=== PATIENT | female | born 1955 | race Caucasian/White ===

== ENCOUNTER → 2017-01-22 | Outpatient (CLI) | payer BC ==
[2017-01-22 08:17] LABS: ALT 124 U/L (9-52); AST 95 U/L (14-36); Creatine Kinase 73 U/L (30-135)
== END ==
LOC: LABWHC1 07:20
PROVIDERS: ATTEND Internal Medicine Interventional Cardiology
DX: E78.00 Pure hypercholesterolemia, unspecified (principal); I10 Essential (primary) hypertension; E11.9 Type 2 diabetes mellitus without complications
CPT/HCPCS: 36415; 82550; 84450; 84460

== ENCOUNTER → 2017-06-11 | Outpatient (CLI) | payer BC ==
--- NOTE | 2017-06-12 08:05 | MM ---
Reason for exam: screening (asymptomatic). Last mammogram was performed 1 year and 1 month ago. History: Patient is postmenopausal. Physical Findings: A clinical breast exam by your physician is recommended on an annual basis and results should be correlated with mammographic findings. MG Screening Mammo w CAD Bilateral CC and MLO view(s) were taken. Prior study comparison: May 23, 2016, right breast MG work up mamm w CAD RT. May 15, 2016, bilateral MG screening mammo w CAD. The breast tissue is heterogeneously dense. This may lower the sensitivity of mammography. There is chronic nodularity bilaterally. There is no dominant lesion. No significant changes when compared with prior studies. ASSESSMENT: Benign, BI-RAD 2 RECOMMENDATION: Routine screening mammogram of both breasts in 1 year.
== END | disposition home or self-care (01) ==
LOC: RADMAMWWP 06:45
PROVIDERS: ATTEND Obstetrics & Gynecology
DX: Z12.31 Encounter for screening mammogram for malignant neoplasm of breast (principal)

== ENCOUNTER → 2017-12-24 | Outpatient (CLI) | payer BC ==
[2017-12-24 08:31] LABS: ALT 81 U/L (21-72); AST 66 U/L (17-59); Cholesterol 242 mg/dL (<200); Creatine Kinase 582 U/L (55-170); HDL Cholesterol 39 mg/dL (40-60); LDL Cholesterol,Calculated 154 mg/dL (0-99); Triglycerides 243 mg/dL (<150)
== END | disposition home or self-care (01) ==
LOC: LABWHC1 07:20
PROVIDERS: ATTEND Internal Medicine Interventional Cardiology
DX: I10 Essential (primary) hypertension (principal); E11.9 Type 2 diabetes mellitus without complications; E78.5 Hyperlipidemia, unspecified
CPT/HCPCS: 36415; 80061; 82550; 84450; 84460

== ENCOUNTER → 2018-07-31 | Outpatient (CLI) | payer BC ==
--- NOTE | 2018-08-01 10:34 | MM ---
Reason for exam: screening (asymptomatic). Last mammogram was performed 1 year and 2 months ago. History: Patient is postmenopausal. Took hormonal contraceptives for 1 year. Physical Findings: A clinical breast exam by your physician is recommended on an annual basis and results should be correlated with mammographic findings. MG Screening Mammo w CAD Bilateral CC and MLO view(s) were taken. Prior study comparison: June 11, 2017, bilateral MG screening mammo w CAD. May 23, 2016, right breast MG work up mamm w CAD RT. The breast tissue is heterogeneously dense. This may lower the sensitivity of mammography. Finding #1: There is a 7 mm equal density (isodense), oval mass in the outer quadrant of the right breast. Finding #2: There are typically benign calcifications in both breasts. ASSESSMENT: Incomplete: need additional imaging evaluation, BI-RAD 0 RECOMMENDATION: Special view mammogram of the right breast. If lesion persists on supplemental views, image directed ultrasound is recommended. [facility] will attempt to contact patient to return for supplemental views and ultrasound if indicated.
== END | disposition home or self-care (01) ==
LOC: RADMAMWWP 08:04
PROVIDERS: ATTEND Obstetrics & Gynecology
DX: Z12.31 Encounter for screening mammogram for malignant neoplasm of breast (principal)
CPT/HCPCS: 77067

== ENCOUNTER → 2018-08-05 | Outpatient (CLI) | payer BC ==
--- NOTE | 2018-08-05 15:04 | MM ---
Reason for exam: additional evaluation requested from abnormal screening. Last mammogram was performed less than 1 month ago. History: Patient is postmenopausal. Took hormonal contraceptives for 1 year. Physical Findings: Nurse did not find any significant physical abnormalities on exam. MG 3D Work Up W/Cad RT CCRL and spot compression CC view(s) were taken of the right breast. Prior study comparison: July 31, 2018, bilateral MG screening mammo w CAD. June 11, 2017, bilateral MG screening mammo w CAD. The breast tissue is heterogeneously dense. This may lower the sensitivity of mammography. Finding: There is a 5 mm circumscribed round mass in the outer quadrant, anterior position of the right breast persists on additional views. These results were verbally communicated with the patient and result sheet given to the patient on 08/05/18. ASSESSMENT: Incomplete: need additional imaging evaluation, BI-RAD 0 RECOMMENDATION: Ultrasound of the right breast.
--- NOTE | 2018-08-05 15:05 | USB ---
Reason for exam: additional evaluation requested from abnormal screening. History: Patient is postmenopausal. Took hormonal contraceptives for 1 year. US Breast Workup Limited RT Right limited breast ultrasound including focal area of concern, retroareolar and axilla demonstrates a 0.3 x 0.4 x 0.2cm oval, complex lesion at 9 o'clock. These results were verbally communicated with the patient and result sheet given to the patient on 08/05/18. ASSESSMENT: Probably benign, BI-RAD 3 RECOMMENDATION: Follow-up diagnostic mammogram and ultrasound of the right breast in 6 months.
== END ==
LOC: EDSEX 13:14 → RADMAMWWP 13:14
PROVIDERS: ATTEND Obstetrics & Gynecology
DX: R92.8 Other abnormal and inconclusive findings on diagnostic imaging of breast (principal)
CPT/HCPCS: 77061; 77065

== ENCOUNTER → 2019-07-28 | Outpatient (CLI) | payer BC ==
--- NOTE | 2019-07-28 13:50 | MM ---
Reason for exam: additional evaluation requested from prior study. Last mammogram was performed 1 year ago. History: Patient is postmenopausal. Took hormonal contraceptives for 1 year. Physical Findings: Nurse did not find any significant physical abnormalities on exam. MG 3D Diag Mammo W/Cad TOBI Bilateral CC and MLO view(s) were taken. Prior study comparison: August 05, 2018, right breast MG 3d work up w/cad RT. July 31, 2018, bilateral MG screening mammo w CAD. The breast tissue is heterogeneously dense. This may lower the sensitivity of mammography. There is no discrete abnormality. No significant new findings when compared with previous films. These results were verbally communicated with the patient and result sheet given to the patient on 07/28/19. ASSESSMENT: Negative, BI-RAD 1 RECOMMENDATION: Routine screening mammogram of both breasts in 1 year.
== END | disposition home or self-care (01) ==
LOC: RADMAMWWP 12:22
PROVIDERS: ATTEND Obstetrics & Gynecology
DX: R92.8 Other abnormal and inconclusive findings on diagnostic imaging of breast (principal)
CPT/HCPCS: 77062; 77066

== ENCOUNTER → 2021-03-06 | Outpatient (CLI) | payer MEDICARE, BC ==
--- NOTE | 2021-03-07 10:20 | MM ---
Reason for exam: screening (asymptomatic). Last mammogram was performed 1 year and 7 months ago. History: Patient is postmenopausal. Took hormonal contraceptives for 1 year. Physical Findings: A clinical breast exam by your physician is recommended on an annual basis and results should be correlated with mammographic findings. MG 3D Screening Mammo W/Cad Bilateral CC and MLO view(s) were taken. Prior study comparison: July 28, 2019, bilateral MG 3d diag mammo w/cad TOBI. August 05, 2018, right breast MG 3d work up w/cad RT. The breast tissue is heterogeneously dense. This may lower the sensitivity of mammography. Finding #1: There is a 9 mm equal density (isodense) mass in the upper outer quadrant of the left breast. Finding #2: There are typically benign calcifications in both breasts. ASSESSMENT: Incomplete: need additional imaging evaluation, BI-RAD 0 RECOMMENDATION: Special view mammogram of the left breast. If lesion persists on supplemental views, image directed ultrasound is recommended. [facility] will attempt to contact patient to return for supplemental views and ultrasound if indicated.
== END | disposition home or self-care (01) ==
LOC: RADMAMWWP 08:55
PROVIDERS: ATTEND Family Medicine
DX: Z12.31 Encounter for screening mammogram for malignant neoplasm of breast (principal); Z78.0 Asymptomatic menopausal state
CPT/HCPCS: 77063; 77067

== ENCOUNTER → 2021-03-08 | Outpatient (CLI) | payer MEDICARE, BC ==
--- NOTE | 2021-03-08 09:11 | MM ---
Reason for exam: additional evaluation requested from abnormal screening. Last mammogram was performed less than 1 month ago. History: Patient is postmenopausal. Took hormonal contraceptives for 1 year. Physical Findings: Nurse did not find any significant physical abnormalities on exam. MG 3D Work Up W/Cad LT Spot compression CC, spot compression MLO, and ML view(s) were taken of the left breast. Prior study comparison: March 06, 2021, bilateral MG 3d screening mammo w/cad. July 28, 2019, bilateral MG 3d diag mammo w/cad TOBI. The breast tissue is heterogeneously dense. This may lower the sensitivity of mammography. There is no discrete abnormality. No significant new findings when compared with previous films. These results were verbally communicated with the patient and result sheet given to the patient on 03/08/21. ASSESSMENT: Negative, BI-RAD 1 RECOMMENDATION: Return to routine screening mammogram schedule for both breasts.
== END | disposition home or self-care (01) ==
LOC: RADMAMWWP 08:02
PROVIDERS: ATTEND Family Medicine
DX: R92.2 Inconclusive mammogram (principal); Z78.0 Asymptomatic menopausal state
CPT/HCPCS: 77065; G0279; 77061

== ENCOUNTER → 2021-03-29 | Outpatient (CLI) | payer MEDICARE, BC ==
--- NOTE | 2021-03-29 09:29 | XR ---
EXAMINATION TYPE: XR Hip Complete RT DATE OF EXAM: 03/29/2021 CLINICAL HISTORY: Pain TECHNIQUE: AP and frogleg views of the right hip are obtained. COMPARISON: None. FINDINGS: There is no acute fracture/dislocation evident in the right hip. Mild narrowing of the sup erior compartment joint space with subchondral sclerosis of the acetabulum suggestive of osteoarthrit is. The overlying soft tissue appears unremarkable. Multiple calcified pelvic phleboliths in the righ t hemipelvis. IMPRESSION: There is no acute fracture or dislocation in the right hip. Mild osteoarthritis of the r ight hip.
--- NOTE | 2021-03-29 16:17 | XR ---
EXAMINATION TYPE: XR lumbar spine 2 or 3V DATE OF EXAM: 03/29/2021 CLINICAL HISTORY: Pain for 8 months radiates towards her right hip down the right leg. TECHNIQUE: Frontal, lateral, and oblique images of the lumbar spine are obtained. COMPARISON: None FINDINGS: 5 non rib bearing lumbar type vertebral bodies are seen. No loss of vertebral body height t o suggest acute compression fracture although there is bony demineralization. Minimal levocurvature. Diffuse bony demineralization limits evaluation for acute fractures. The sacroiliac joints are intact . There is maintenance of the normal lumbar lordosis. There is moderate intervertebral disc space ana rowing at L2-3. There is mild grade 1 retrolisthesis of L2 on L3. Mild straightening of the normal bart mbar lordosis likely due to positioning or muscle spasm. Multiple anterior osteophytes are seen. Face ts are in alignment with degenerative changes. IMPRESSION: 1. Mild grade 1 retrolisthesis of L2 on L3. There is moderate intervertebral disc space narrowing at L2-3. 2. Diffuse osteopenia limits evaluation for acute fracture. No loss of vertebral body height to sugge st acute compression fracture.
== END | disposition home or self-care (01) ==
LOC: RADXRMAIN 08:22
PROVIDERS: ATTEND Family Medicine
DX: M16.11 Unilateral primary osteoarthritis, right hip (principal); M43.16 Spondylolisthesis, lumbar region; M51.16 Intervertebral disc disorders with radiculopathy, lumbar region; M85.88 Other specified disorders of bone density and structure, other site
CPT/HCPCS: 72100; 73502

== ENCOUNTER 2021-05-02 07:49 | Day surgery (SDC) | payer MEDICARE, BC ==
[2021-04-27 15:50] VITALS: BMI 30.7
[2021-05-02 08:05] VITALS: TEMP 97.2
[2021-05-02 08:10] LABS: Glucose,Whole Blood 200 mg/dL (75-99)
[2021-05-02] MEDS ORDERED: LACTATED RINGERS 1,000 ML IV ONE (08:10)
[2021-05-02] MEDS ORDERED: PROPOFOL 10 MG/ML 20 ML VIAL IV ONE (08:30)
[2021-05-02] MEDS ORDERED: LIDOCAINE 1% INJ 10MG/ML (20 ML MDV) ONE (08:30)
--- NOTE | 2021-05-02 08:32 | P.GSHP ---
History of Present Illness H&P Date: 05/02/21 Chief Complaint: Iron deficiency anemia, GERD, screening Patient here today for upper and lower endoscopy. Patient complaining of fatigue. Was found to have low iron and low hemoglobin. Patient's white blood cell count and platelets also low. Last colonoscopy approximately 10 years ago. No previous upper endoscopy. Patient complains of reflux and occasional episodes of dysphagia. No rectal bleeding or melena. Past Medical History Past Medical History: Blood Disorder, Diabetes Mellitus, GERD/Reflux, Hyperlipidemia, Hypertension Additional Past Medical History / Comment(s): Seeing Dr Stephens for low RBC, WBC, PLT count. History of Any Multi-Drug Resistant Organisms: None Reported Past Surgical History: Hysterectomy Additional Past Surgical History / Comment(s): Colonoscopy, EGD Past Anesthesia/Blood Transfusion Reactions: Motion Sickness Smoking Status: Never smoker - Past Family History Mother Family Medical History: No Reported History Medications and Allergies Home Medications Medication Instructions Recorded Confirmed Type FLUoxetine HCL [PROzac] 20 mg PO HS 04/27/21 04/27/21 History L.acidoph,Paracasei, B.lactis 1 each PO DAILY 04/27/21 04/27/21 History [Probiotic] Loratadine [Claritin] 10 mg PO DAILY 04/27/21 04/27/21 History Losartan/Hydrochlorothiazide 1 tab PO DAILY 04/27/21 04/27/21 History [Losartan-Hctz 100-12.5 mg Tab] Metoprolol Tartrate 25 mg PO DAILY 04/27/21 05/02/21 History Omeprazole [PriLOSEC] 20 mg PO AC-BRKFST 04/27/21 04/27/21 History Rosuvastatin Calcium [Crestor] 5 mg PO DAILY 04/27/21 04/27/21 History metFORMIN HCL [metFORMIN HCL ER] 1,000 mg PO BID 04/27/21 04/27/21 History Allergies Allergy/AdvReac Type Severity Reaction Status Date / Time Penicillins Allergy Rash/Hives Verified 05/02/21 08:02 Surgical - Exam Vital Signs Temp Pulse Resp BP Pulse Ox 97.2 F L 76 17 129/72 97 05/02/21 08:05 05/02/21 08:05 05/02/21 08:05 05/02/21 08:05 05/02/21 08:05 Physical exam: General: Well-developed, well-nourished HEENT: Normocephalic, sclerae nonicteric Abdomen: Nontender, nondistended Extremities: No edema Neuro: Alert and oriented Results - Labs Abnormal Lab Results - Last 24 Hours (Table) 05/02/21 Range/Units 08:08 POC Glucose (mg/dL) 200 H (75-99) mg/dL Assessment and Plan (1) Iron deficiency anemia Narrative/Plan: Will proceed with upper and lower endoscopy Current Visit: Yes Status: Acute Code(s): D50.9 - IRON DEFICIENCY ANEMIA, UNSPECIFIED SNOMED Code(s): 50355426
--- NOTE | 2021-05-02 08:58 | P.PCN ---
Date of Procedure: 05/02/21 Procedure(s) Performed: PREOPERATIVE DIAGNOSIS: GERD, iron deficiency anemia, colon cancer screening POSTOPERATIVE DIAGNOSIS: Gastritis, small gastric polyps, ascending colon polyp PROCEDURE: 1. EGD with biopsy 2. Colonoscopy with snare polypectomy ANESTHESIA: MAC SURGEON: Vahid Garay M.D. SPECIMENS: Antrum, Gastric polyp, colon polyp ENDOSCOPIC PROCEDURE: The patient was on the endoscopy table in the left decubitus position. The Olympus gastroscope was inserted into the oropharynx and passed under direct visualization to the region of the third portion of the duodenum. From that point the scope was slowly withdrawn inspecting all surfaces carefully. There were no neoplastic inflammatory or polypoid lesions throughout the duodenum. The pylorus was widely patent. The stomach was carefully inspected. There was mild gastritis present. A biopsy of the antrum took place to rule out H. pylori. Patient also was noted have a few small gastric polyps. One of these was removed and biopsied. Retroflexion revealed a normal hiatus. The esophagus was then carefully examined. There were no neoplastic inflammatory or polypoid lesions throughout the visualized esophagus. The patient was kept on the endoscopy table in the left decubitus position. The Olympus colonoscope was inserted into the anus and passed under direct visualization to the base of the cecum. The appendiceal orifice was visualized. From that point the scope was slowly withdrawn inspecting all surfaces careful ly. There were no neoplastic inflammatory or polypoid lesions throughout the cecum. In the ascending colon there was a 1 cm sessile polyp that was removed using the snare with cautery technique. This was retrieved using the Pan met. The remainder of the ascending transverse descending sigmoid and rectum appeared normal. There is no visible diverticulosis. Digital rectal examination was normal. The patient was taken to the recovery room in stable condition per anesthesia guidelines. RECOMMENDATIONS: Await biopsy results. Continue anemia workup.
[2021-05-02 09:25] LABS: Glucose,Whole Blood 187 mg/dL (75-99)
[2021-05-02 09:27] VITALS: BP 108/71; PULSE 64; RESP 16
== END 2021-05-02 09:51 | disposition home or self-care (01) ==
LOC: ORWHC2ENDO 07:49
PROVIDERS: ATTEND Surgery
DX: Z12.11 Encounter for screening for malignant neoplasm of colon (principal); K21.9 Gastro-esophageal reflux disease without esophagitis; D50.9 Iron deficiency anemia, unspecified; D12.2 Benign neoplasm of ascending colon; K29.50 Unspecified chronic gastritis without bleeding; E11.9 Type 2 diabetes mellitus without complications; E78.5 Hyperlipidemia, unspecified; I10 Essential (primary) hypertension; Z79.899 Other long term (current) drug therapy; Z88.0 Allergy status to penicillin
CPT/HCPCS: 88305; 45385; 43239; J2001; J2704

== ENCOUNTER 2021-05-30 06:24 | Day surgery (SDC) | payer MEDICARE, BC ==
[2021-05-24 13:22] VITALS: BMI 30.7
[~2021-05-30 06:24] MED LIST: LACTATED RINGERS 1,000 ML IV SCH; LIDOCAINE 1% (10MG/ML) FOR IV START INTRADERMA PRN
[2021-05-30 06:59] VITALS: RESP 16; TEMP 97
[2021-05-30 07:07] LABS: Glucose,Whole Blood 156 mg/dL (75-99)
[2021-05-30] MEDS ORDERED: PROPOFOL 10 MG/ML 20 ML VIAL IV ONE (07:18)
[2021-05-30] MEDS ORDERED: LIDOCAINE 2% INJ 20 MG/ML SQ ONE ×2 (07:29→07:41)
[2021-05-30 08:09] VITALS: BP 100/66; PULSE 56
[2021-05-30 08:23] LABS: Anisocytosis Slight; Basophils % (A) 0 %; Eosinophils % (A) 1 %; HCT 34.6 % (34.0-46.0); HGB 11.8 gm/dL (11.4-16.0); Lymphocytes # (A) 0.8 k/uL (1.0-4.8); Lymphocytes % (A) 38 %; MCH 31.2 pg (25.0-35.0); MCHC 34.1 g/dL (31.0-37.0); MCV 91.6 fL (80.0-100.0); Mean Platelet Volume 7.2; Monocytes # (A) 0.1 k/uL (0-1.0); Monocytes % (A) 5 %; Neutrophils # (A) 1.2 k/uL (1.3-7.7); Neutrophils % (A) 54 %; RBC 3.78 m/uL (3.80-5.40); RDW 16.8 % (11.5-15.5); Reticulocyte % 2.8 % (0.5-2.0); WBC 2.2 k/uL (3.8-10.6)
[2021-05-30 08:35] LABS: Platelet Count 80 k/uL (150-450)
--- NOTE | 2021-05-30 09:57 | PCN ---
PROCEDURE NOTE DATE OF SERVICE: May 30, 2021. PROCEDURE PERFORMED: Bone pain and biopsy. INDICATION: Pancytopenia. DESCRIPTION OF PROCEDURE: After obtaining consent from the patient, the procedure was performed in the endoscopy suite under general anesthesia performed by the anesthesia team. The patient was put in the left lateral decubitus position. The right posterior iliac crest was localized. Skin was prepped with a ChloraPrep. All sterile procedures were followed. of 2% Xylocaine was used for local anesthetic. Monoject needle was inserted. About 10 mL aspirate and 1 cm core biopsy was obtained without any difficulties. Pressure applied afterwards. There was negligible blood loss. Patient tolerated procedure very well without any immediate complications. MMODL / IJN: [id number] /
== END 2021-05-30 08:34 | disposition home or self-care (01) ==
LOC: OR 06:24
PROVIDERS: ATTEND Internal Medicine Hematology & Oncology
DX: D61.818 Other pancytopenia (principal); I10 Essential (primary) hypertension; E78.5 Hyperlipidemia, unspecified; E11.9 Type 2 diabetes mellitus without complications; F32.9 Major depressive disorder, single episode, unspecified; K21.9 Gastro-esophageal reflux disease without esophagitis
CPT/HCPCS: 38222; 85025; 85045; J2001; J2704

== ENCOUNTER → 2021-06-12 | Outpatient (CLI) | payer MEDICARE, BC ==
--- NOTE | 2021-06-15 07:50 | CT ---
EXAMINATION TYPE: CT ChestAbdPelvis w con DATE OF EXAM: 06/12/2021 COMPARISON: 08/22/2012 HISTORY: Loose bowels and pancytopenia CT DLP: 1195.1 mGycm CONTRAST: CT scan of the chest, abdomen and pelvis is performed with Oral Contrast and with IV Contrast, patien t injected with 100 mL of Isovue 300. CT Chest: LUNGS: The lungs are clear and free of infiltrate or atelectasis. No pulmonary nodule or mass is det ected. No pleural effusion or CT evidence of interstitial lung disease. MEDIASTINUM: Thoracic aorta is of normal caliber. The heart is not enlarged. No evidence for media stinal mass or adenopathy. HILAR STRUCTURES: No evidence for mass. No hilar adenopathy is appreciated. OTHER: No significant abnormality. CONTRAST CT ABDOMEN AND PELVIS FINDINGS: LIVER/GB: No calcified gallstones. No space occupying hepatic lesion. Biliary tree is of normal ca liber. PANCREAS: No inflammation. No distinct mass. SPLEEN: Splenomegaly measures 19.1 cm craniocaudal dimension. No lesion seen. ADRENALS: No nodule. No thickening. KIDNEYS/BLADDER: No hydronephrosis. No nephrolithiasis. No disctinct renal mass. BOWEL: Normal appendix. Normal bowel caliber. No inflammation. GENITAL ORGANS: Hysterectomy changes. LYMPH NODES: No greater than 1cm abdominal or pelvic lymph nodes are appreciated. AORTA: No significant abnormality. OSSEOUS STRUCTURES: No significant abnormality is seen. OTHER: No significant additional abnormality is seen. IMPRESSION: 1. Splenomegaly.
== END | disposition home or self-care (01) ==
LOC: RADCTMAIN 10:40
PROVIDERS: ATTEND Internal Medicine Hematology & Oncology
DX: D61.818 Other pancytopenia (principal)
CPT/HCPCS: 82565; 84520; 71260; 74177; 36415; Q9967

== ENCOUNTER → 2021-07-28 | Outpatient (CLI) | payer MEDICARE, BC ==
--- NOTE | 2021-07-30 08:07 | PE ---
EXAMINATION TYPE: PET CT fusion skull to thigh DATE OF EXAM: 07/28/2021 COMPARISON: Whole-body CT June 12, 2021 HISTORY: Lymphadenopathy and splenomegaly. TECHNIQUE: Following the intravenous administration of 13.88 mCi of F-18 FDG, whole body images are performed from the skull base to the midthigh. Images are reviewed on the computer in the coronal, a xial, and sagittal planes. Reconstructed rotating images are created on independent workstation and reviewed on the computer. A localization and attenuation correction CT is performed in conjunction with the PET scan. Blood glucose level equals 128 SCAN: Initial Scan FINDINGS: SKULL BASE AND NECK: No abnormal hypermetabolic uptake or suspicious enlarged adenopathy. CHEST, MEDIASTINUM, AND HILAR REGION: No abnormal hypermetabolic uptake or suspicious enlarged adenop athy. ABDOMEN AND PELVIS: Hepatosplenomegaly redemonstrated without abnormal focal or diffuse hypermetaboli c uptake. Fairly moderate nonspecific diffuse bowel uptake. Normal excretion. Persistent some increased irregular linear and slightly nodular soft tissue density near the celiac a rtery and SMA for reference axial image 134 without abnormal hypermetabolic uptake. No greater than 1 cm hypermetabolic adenopathy. OSSEOUS STRUCTURES: No areas of abnormal hypermetabolic uptake OTHER CT: Likely posterior subcentimeter right thyroid nodule axial image 58. This correlates with 20 15 ultrasound. [id number]-wqbenzqy coronary artery calcification in the LAD. Uterus is surgically absent. Scattered bilateral pelvic phleboliths. Slight scoliotic curvature. Slight grade 1 retrolisthesis L2 on L3 and L3 on L4. IMPRESSION: Hepatosplenomegaly redemonstrated. Mild abnormal soft tissue in the upper to mid abdomen posteriorly again seen. No abnormal hypermetabolic uptake identified however. No enlarged hypermetabo lic lymph nodes.
== END | disposition home or self-care (01) ==
LOC: RADPETMAIN 15:23
PROVIDERS: ATTEND Internal Medicine Hematology & Oncology
DX: R16.2 Hepatomegaly with splenomegaly, not elsewhere classified (principal)
CPT/HCPCS: 78815; A9552

== ENCOUNTER → 2021-10-13 | Outpatient (CLI) | payer MEDICARE, BC ==
[~2021-10-13] MED LIST changes: -LACTATED RINGERS 1,000 ML IV SCH; -LIDOCAINE 1% (10MG/ML) FOR IV START INTRADERMA PRN; +SODIUM CHLORIDE 0.9% 500 ML 500 ML in EMPTY BAG 1 BAG IV PRN; +ZOLEDRONIC ACID 5 MG in SODIUM CHLORIDE 0.9% 100 ML IV NR
[2021-10-13 10:02] VITALS: BP 152/78; PULSE 71; RESP 16; TEMP 98.3
== END ==
LOC: PROCWHC3 09:20
PROVIDERS: ATTEND Internal Medicine
DX: M81.0 Age-related osteoporosis without current pathological fracture (principal); Z88.0 Allergy status to penicillin
CPT/HCPCS: 96365; J3489

== ENCOUNTER → 2022-04-27 | Outpatient (CLI) | payer MEDICARE, BC ==
--- NOTE | 2022-05-01 18:09 | MM ---
Reason for Exam: Screening (asymptomatic). Last mammogram was performed 1 year(s) and 2 month(s) ago. Patient History: Menarche at age 15. First Full-Term at age 21. Hysterectomy at age 50. Postmenopausal. Patient used Hormonal Contraceptives for 1 year. Risk Values: Ursula 5 year model risk: 1.4%. NCI Lifetime model risk: 4.9%. Prior Study Comparison: 07/28/2019 Bilateral Diagnostic Mammogram, [facility]. 03/06/2021 Bilateral Screening Mammogram, [facility]. 03/08/2021 Left Diagnostic Mammogram, [facility]. Tissue Density: The breast tissue is heterogeneously dense. This may lower the sensitivity of mammography. Findings: Analyzed By CAD. Unchanged focal asymmetry central left breast. Faint benign vascular calcifications right breast. No significant change from prior exams. Overall Assessment: Benign, BI-RAD 2 Management: Screening Mammogram of both breasts in 1 year. 1. Patient should continue monthly self breast exams. 2. A clinical breast exam by your physician is recommended on an annual. 3. This exam should not preclude additional follow-up of suspicious palpable abnormalities. Electronically signed and approved by: Sha Zavala M.D. Radiologis
== END | disposition home or self-care (01) ==
LOC: RADMAMWWP 07:49
PROVIDERS: ATTEND Family Medicine
DX: Z12.31 Encounter for screening mammogram for malignant neoplasm of breast (principal); Z78.0 Asymptomatic menopausal state
CPT/HCPCS: 77063; 77067

== ENCOUNTER 2022-08-24 10:57 | Day surgery (SDC) | payer MEDICARE, BC ==
[2022-08-22 11:17] VITALS: BMI 30.6
[~2022-08-24 10:57] MED LIST changes: +LACTATED RINGERS 1,000 ML IV SCH; +LIDOCAINE 1% (10MG/ML) FOR IV START INTRADERMA PRN; -SODIUM CHLORIDE 0.9% 500 ML 500 ML in EMPTY BAG 1 BAG IV PRN; -ZOLEDRONIC ACID 5 MG in SODIUM CHLORIDE 0.9% 100 ML IV NR
[2022-08-24 11:56] VITALS: RESP 16; TEMP 97.4
[2022-08-24] MEDS ORDERED: LIDOCAINE 2% INJ 20 MG/ML (2 ML VIAL) ONE (12:09)
[2022-08-24] MEDS ORDERED: PROPOFOL 10 MG/ML 20 ML VIAL IV ONE (12:09)
[2022-08-24 12:43] LABS: Basophils % (A) 0 %; Eosinophils % (A) 2 %; HCT 36.7 % (34.0-46.0); HGB 12.4 gm/dL (11.4-16.0); Lymphocytes # (A) 0.8 k/uL (1.0-4.8); Lymphocytes % (A) 35 %; MCH 31.8 pg (25.0-35.0); MCHC 33.7 g/dL (31.0-37.0); MCV 94.2 fL (80.0-100.0); Monocytes # (A) 0.1 k/uL (0-1.0); Monocytes % (A) 5 %; Neutrophils # (A) 1.3 k/uL (1.3-7.7); Neutrophils % (A) 58 %; Platelet Count 57 k/uL (150-450); RBC 3.89 m/uL (3.80-5.40); RDW 13.7 % (11.5-15.5); Reticulocyte % 2.2 % (0.5-2.0); WBC 2.2 k/uL (3.8-10.6)
[2022-08-24 13:11] VITALS: BP 117/74; PULSE 55
--- NOTE | 2022-08-24 21:43 | OP ---
OPERATIVE REPORT PROCEDURES PERFORMED: Bone marrow aspiration and biopsy. INDICATIONS FOR PROCEDURE: Pancytopenia. DESCRIPTION OF PROCEDURE: After obtaining consent from the patient, the procedure was performed in the endoscopy suite under general anesthesia performed by Anesthesia Team. The patient was put in the left lateral decubitus position. The right posterior superior iliac crest was localized. Skin was cleansed with ChloraPrep. All sterile procedures were followed. 2 mL of 2% Xylocaine was used for local anesthetic. Monoject needle was inserted. About 15 mL aspirate and 1 cm core biopsy were obtained without any difficulties. The patient tolerated the procedure very well without any immediate complications. MMODL / IJN: [id number] /
== END 2022-08-24 13:27 | disposition home or self-care (01) ==
LOC: OR 10:57
PROVIDERS: ATTEND Internal Medicine Hematology & Oncology
DX: D61.818 Other pancytopenia (principal); I10 Essential (primary) hypertension; E78.5 Hyperlipidemia, unspecified; E11.9 Type 2 diabetes mellitus without complications; E21.3 Hyperparathyroidism, unspecified; D46.9 Myelodysplastic syndrome, unspecified; K21.9 Gastro-esophageal reflux disease without esophagitis; Z79.899 Other long term (current) drug therapy; Z90.89 Acquired absence of other organs; Z90.49 Acquired absence of other specified parts of digestive tract; Z90.710 Acquired absence of both cervix and uterus; Z71.3 Dietary counseling and surveillance; Z88.0 Allergy status to penicillin
CPT/HCPCS: 85025; 85045; 38222; J2704; J2001

== ENCOUNTER → 2022-10-16 | Outpatient (CLI) | payer MEDICARE, BC ==
[~2022-10-16] MED LIST changes: -LACTATED RINGERS 1,000 ML IV SCH; -LIDOCAINE 1% (10MG/ML) FOR IV START INTRADERMA PRN; +SODIUM CHLORIDE 0.9% 500 ML 500 ML in EMPTY BAG 1 BAG IV PRN; +ZOLEDRONIC ACID 5 MG in SODIUM CHLORIDE 0.9% 100 ML IV NR
[2022-10-16 13:36] VITALS: BP 114/64; PULSE 59; RESP 16; TEMP 98.3
== END ==
LOC: PROCWHC3 13:25
PROVIDERS: ATTEND Internal Medicine
DX: M85.9 Disorder of bone density and structure, unspecified (principal); Z88.0 Allergy status to penicillin
CPT/HCPCS: 96365; J3489

== ENCOUNTER → 2023-05-01 | Outpatient (CLI) | payer MEDICARE, BC ==
--- NOTE | 2023-05-02 08:23 | MM ---
Reason for Exam: Screening (asymptomatic). Last screening mammogram was performed 12 month(s) ago. Patient History: Menarche at age 15. First Full-Term at age 21. Hysterectomy at age 50. Postmenopausal. Patient has history of breast feeding. Patient used Hormonal Contraceptives for 1 year. Daughter had breast cancer, left, age 46. Daughter tested for BRCA2 outcome was positive. Risk Values: Ursula 5 year model risk: 3.0%. NCI Lifetime model risk: 9.9%. Prior Study Comparison: 05/15/2016 Bilateral Screening Mammogram, [facility]. 05/23/2016 Right Diagnostic Mammogram, [facility]. 06/11/2017 Bilateral Screening Mammogram, [facility]. 07/31/2018 Bilateral Screening Mammogram, [facility]. 08/05/2018 Right Diagnostic Mammogram, [facility]. 07/28/2019 Bilateral Diagnostic Mammogram, [facility]. 03/06/2021 Bilateral Screening Mammogram, [facility]. 03/08/2021 Left Diagnostic Mammogram, [facility]. 04/27/2022 Bilateral MG 3D screening mammo w/cad, [facility]. Tissue Density: The breast tissue is heterogeneously dense. This may lower the sensitivity of mammography. Findings: Analyzed By CAD. There is no suspicious group of microcalcifications or new suspicious mass in either breast. Overall Assessment: Negative, BI-RAD 1 Management: Screening Mammogram of both breasts in [address] [facility] will attempt to contact patient to return for supplemental views and ultrasound if indicated. Patient should continue monthly self-breast exams. A clinical breast exam by your physician is recommended on an annual basis. This exam should not preclude additional follow-up of suspicious palpable abnormalities. Note on Ursula scores and lifetime risk: 1. A Ursula score greater than 3% is considered moderate risk. If this is the case, consider specialist referral to assess eligibility for a risk reducing agent. 2. If overall lifetime risk for the development of breast cancer is 20% or higher, the patient may qualify for future screening with alternating mammogram and breast MRI. Electronically signed and approved by: Mauro Harvey DO
== END | disposition home or self-care (01) ==
LOC: RADMAMWWP 07:49
PROVIDERS: ATTEND Family Medicine
DX: Z12.31 Encounter for screening mammogram for malignant neoplasm of breast (principal); Z78.0 Asymptomatic menopausal state; Z80.3 Family history of malignant neoplasm of breast
CPT/HCPCS: 77063; 77067

== ENCOUNTER → 2023-06-10 | Outpatient (CLI) | payer MEDICARE, BC ==
--- NOTE | 2023-06-10 09:13 | MR ---
EXAMINATION TYPE: MR lumbar spine wo con DATE OF EXAM: 06/10/2023 COMPARISON: Lumbar spine radiograph 06/03/2023 HISTORY: Back and Hip Pain that travels down the RT side x1 year TECHNIQUE: Multiplanar, multisequence images of the lumbar spine were acquired without IV contrast. FINDINGS: Lumbar segments are intact. No paraspinal masses are identified. Conus medullaris has a normal appe arance. Multilevel anterior osteophytosis with disc space narrowing. Type II Modic changes involving the inferior endplate of L2 and superior endplate of L3. Multilevel disc desiccation. L1-L2: Small right paracentral disc protrusion with superior migration of 8 mm. There is mild effacem ent of the intrathecal sac. Bilateral facet arthropathy. Mild left neural foraminal stenosis. The rig ht neural foramen is patent. L2-L3: Mild broad-based disc bulge with bilateral facet arthropathy. No stomach is central canal sten osis. No significant neural foraminal stenosis. L3-L4: Mild broad-based disc bulge with bilateral facet arthropathy without significant central canal or neural foraminal stenosis. L4-L5: Minimal broad-based disc bulge with bilateral facet arthropathy without significant central ca nal stenosis or neural foraminal stenosis. L5-S1: No herniation, protrusion or disc bulging. No canal stenosis is present. Left facet arthropa thy. Foramina are patent bilaterally. IMPRESSION: 1. Small L1-L2 disc herniation with superior migration. No significant central canal stenosis. Next l ine 2. Mild multilevel degenerative disc disease and facet arthropathy as described above.
== END | disposition home or self-care (01) ==
LOC: RADMRIMAIN 06:24
PROVIDERS: ATTEND Family Medicine
DX: M47.26 Other spondylosis with radiculopathy, lumbar region (principal); M51.16 Intervertebral disc disorders with radiculopathy, lumbar region; M99.73 Connective tissue and disc stenosis of intervertebral foramina of lumbar region
CPT/HCPCS: 72148

== ENCOUNTER → 2023-09-02 | Outpatient (CLI) | payer MEDICARE, BC ==
[2023-09-02 13:18] VITALS: BP 101/64; PULSE 67; RESP 15; TEMP 98.5
--- NOTE | 2023-09-02 13:50 | P.PAINPG ---
PQRS Measure Charge Sheet Comment: HISTORY OF PRESENT ILLNESS: A 68 yr old female w at side as a referral from Dr Francis presents today w severe and chronic LBP secondary to DDD, spondylosis and facet arthropathy without myelopathy for evaluation. Pt states pain level is provoked at 7 /10 in intensity, constant, localized in the mid to lower lumbar spine, predominantly axial, achy in character w shooting pain towards the RLE. Pain is provoked by weight bearing. Pain is alleviated by PT x 6 wks in Jun/ Jul 2023, heat, medications (Tyl), topical Icy-Hot, repositioning and rest. Oswestry axial pain score at 16. PMH: OA, DM II, GERD, Hyperlipidemia, HTN, Myelodysplastic Syndrome PSH: Colonoscopy/ EGD (2020), Hysterectomy SH: Negative x3 FH: Mo- No Reported History All: See list Meds: See list REVIEW OF ORGAN SYSTEMS: CONSTITUTIONAL: No fevers or chills. No recent weight loss. NEUROLOGICAL: + numbness and tingling along the distal extremities. No seizure disorders or headaches. MUSCULOSKELETAL: + pain PSYCHIATRIC: Denies current depression or suicidal thoughts. Physical Examinations : Constitutional : Cooperative , not in acute distress . Neurologic : Cranial nerve II to XII intact. No focal neurological deficits. Psychiatric : alert & oriented x 3. Matching mood & appropriate affect. Judgment & insight intact. Musculoskeletal : Cervical Spine Motor strength in the deltoid and biceps: Normal right side. Normal Left side Motor strength biceps and the wrist extensors: Normal right side . Normal left side Motor strength in the triceps muscle: Normal right side. Normal left side Deep tendon reflexes: Normal at the biceps. Normal at Brachioradialis. Normal at triceps Vertebral body tenderness to deep palpation over Cervical facet loading test: positive bilaterally Spurling test: positive bilaterally Neck distraction test: positive bilaterally Pete sign: positive bilaterally Lumbar spine Motor strength lower extremities ,thigh and legs 5/5 Right side , 5/5 Left side Deep tendon reflexes : Normal Knee Jerk. Normal Ankle Jerk Vertebral body tenderness over L3 Barraza Test positive Lumbar facet Loading Test: positive Right / positive Left Range of motion of the lumbar spine Flexion 30 degrees, extension 10 degrees Straight Leg Raise test: Left/ Right positive at degree Wang test: positive right / positive left. Severe tenderness over the Sacroiliac joint on the Right / Left sides Gaenslen test: positive bilaterally Seated flexion test: positive bilaterally. Sacral spine : Severe tenderness over the Sacroiliac joint: right side / left side Range of motion: Flexion of the lumbar spine <60 degrees Range of motion: Extension of the lumbar spine <20 degrees Gaenslen's Test positive Wang test: positive right side / left side Thigh Thrust Test Sacral Thrust Test Imaging: MRI noncontrast of the lumbar spine from 06/10/23 reviewed Assessment/ Plan : Lumbar DDD Recommendation of YUKO L2-L3 #1. May need a series of injections for optimal pain relief. Risks, benefits of procedure discussed and patient verbalized understanding. Admits to anti- coagulant use or medical history of diabetes. Protocol for discontinuation/ continuation of medications ana procedure discussed. Minimal anesthesia provided, if clinically indicated, consisting of Versed and Fentanyl. All questions answered. I have spent greater than 30 minutes on patient care today. Dr Pinto was available by phone for the evaluation of this patient. The time was used to review the medical records including relevant urine studies and Prescription history (MAPs), review of the available imaging, evaluation and examination of the patient, coordination of care with the medical staff and if applicable referring physicians, as well as creation of the medical record Home Medications: Ambulatory Orders FLUoxetine HCL [PROzac] 20 mg PO DAILY 04/27/21 Loratadine [Claritin] 10 mg PO DAILY PRN 04/27/21 Losartan/Hydrochlorothiazide [Losartan-Hctz 100-12.5 mg Tab] 1 tab PO DAILY 04/27/21 Metoprolol Tartrate 25 mg PO DAILY 04/27/21 Omeprazole [PriLOSEC] 20 mg PO AC-BRKFST 04/27/21 Rosuvastatin Calcium [Crestor] 5 mg PO DAILY 04/27/21 Pioglitazone [Actos] 30 mg PO DAILY 10/13/21 Cholecalciferol [Vitamin D3 (25 Mcg = 1000 Iu)] 50 mcg PO DAILY 08/22/22 Controlled Substance Measures - Controlled Substance Measures Is patient prescribed a controlled substance at discharge?: No
== END ==
LOC: PNWHC3 12:36
PROVIDERS: ATTEND Specialist
DX: M51.16 Intervertebral disc disorders with radiculopathy, lumbar region (principal); M48.061 Spinal stenosis, lumbar region without neurogenic claudication; M47.26 Other spondylosis with radiculopathy, lumbar region; M19.90 Unspecified osteoarthritis, unspecified site; E11.9 Type 2 diabetes mellitus without complications; E78.5 Hyperlipidemia, unspecified; I10 Essential (primary) hypertension; D46.9 Myelodysplastic syndrome, unspecified; K21.9 Gastro-esophageal reflux disease without esophagitis; Z79.899 Other long term (current) drug therapy; Z88.0 Allergy status to penicillin
CPT/HCPCS: 99211

== ENCOUNTER 2023-09-17 07:34 | Day surgery (SDC) | payer MEDICARE, BC ==
[~2023-09-17 07:34] MED LIST changes: +LACTATED RINGERS 1,000 ML IV SCH; -SODIUM CHLORIDE 0.9% 500 ML 500 ML in EMPTY BAG 1 BAG IV PRN; -ZOLEDRONIC ACID 5 MG in SODIUM CHLORIDE 0.9% 100 ML IV NR
[2023-09-17 11:34] LABS: Glucose,Whole Blood 89 mg/dL (70-110)
[2023-09-17 11:52] VITALS: TEMP 97.9
[2023-09-17] MEDS ORDERED: IOPAMIDOL M200 10 ML VIAL ONE (12:18)
[2023-09-17] MEDS ORDERED: methylPREDNISolone ACETATE 40 MG/ML 1 ML VIAL ONE (12:18)
--- NOTE | 2023-09-17 12:26 | P.PCN ---
Date of Procedure: 09/17/23 Procedure(s) Performed: PREOPERATIVE DIAGNOSIS: 1- Lumbar Degenerative Disc Diseases 2-Lumbar spondylosis with Facet arthropathy without myelopathy. 3-lumbar spinal stenosis POSTOPERATIVE DIAGNOSIS: 1-lumbar degenerative disc disease. 2-lumbar spondylosis with facet arthropathy without myelopathy. 3-lumbar spinal stenosis. PROCEDURE 1. Lumbar epidural steroid injection under fluoroscopic guidance at the L2-3 level. (Fluoroscopy imaging was available in radiology department) 2. Lumbar epidurogram. ANESTHESIA: Lidocaine 1% 3 and then only. EBL: Minimal PROCEDURE INDICATION: The patient with low back pain and radiculitis symptoms unresponsive to conservative treatment. Fluoroscopy was used to optimize visualization of the needle placement and to maximize safety. PROCEDURE DESCRIPTION / TECHNIQUE: The patient was seen and identified in the preoperative area. Risks, benefits, complications including but not limited to infections ,bleeding ,allergic reaction to the medications ,nerve damage and not complete pain releife , and alternatives were discussed with the patient. The patient agreed to proceed with the procedure and signed the consent, and vital signs were stable. Patient was taken to the OR and time out was completed. The patient was placed in the prone position on procedure table and a pillow was placed under the abdomen to reduce lumbar lordosis. The lumbosacral area was prepped and draped in the usual sterile fashion.ere closely monitored during the procedure. Vital signs was monitered during the entire procedure. Using anterior-posterior fluoroscopy, the L2-3 interlaminar space was identified and the skin over this site was marked and then infiltrated with 1% lidocaine subcutaneously. Subsequently, a 20-gauge Tuohy epidural needle was inserted and advanced toward the epidural space using the ``Loss of resistance technique and guided by AP and lateral fluoroscopy. The correct needle position in the epidural space was verified with the injection of 2 mL of the water soluble contrast dye Isovue 200 contrast and observing an excellent epidurogram with the epidural spread of the dye, after negative aspiration for blood and CSF and in the absence of paresthesias. Again after negative aspiration, a 6 ml mixture containing 40 mg of Depo-medrol ( Preservetive Free ), and 2 ml of preservative free Normal Saline, and 2 ml of preservative free lidocaine 1% solution was injected and a washout of epidurogram was seen. Needle was withdrawn intact, skin was cleansed, and bandages were applied. COMPLICATIONS: None DISPOSITION / PLANS: The patient was placed in a supine position and transferred to the recovery area in a stable condition for observation. There was no evidence of lower extremity motor or sensory deficit after the procedure. Patient was discharged from the recovery room after meeting discharge criteria. Home discharge instructions were given to the patient by the staff. The patient was reexamined prior to discharge. The patient will schedule a follow up in the clinic in 2-4 weeks. note= and had a history of pancytopenia and she received 20 units of platelets before the procedure(per hematology recommendation ).
[2023-09-17 12:50] VITALS: RESP 20
--- NOTE | 2023-09-17 13:16 | FL ---
Intraoperative/procedural fluoroscopic services were provided. Total fluoroscopy time is 2.5 seconds with a total of 1 submitted images to PACS. Please see the operative/procedural note for further deta ils. DAP: [id number] mGym2
[2023-09-17 13:18] VITALS: BP 138/79; PULSE 92
== END 2023-09-17 13:11 | disposition home or self-care (01) ==
LOC: ORPAIN 07:34
PROVIDERS: ATTEND Specialist
DX: M48.061 Spinal stenosis, lumbar region without neurogenic claudication (principal); M47.816 Spondylosis without myelopathy or radiculopathy, lumbar region; M51.36 Other intervertebral disc degeneration, lumbar region
CPT/HCPCS: 62323

== ENCOUNTER → 2023-09-17 | Outpatient (CLI) | payer MEDICARE, BC ==
[2023-09-17 11:13] LABS: HCT 30.9 % (34.0-46.0); HGB 10.1 gm/dL (11.4-16.0); MCHC 32.6 g/dL (31.0-37.0); MCV 95.2 fL (80.0-100.0); Mean Platelet Volume 7.7; RBC 3.25 m/uL (3.80-5.40); WBC 1.7 k/uL (3.8-10.6)
[2023-09-17 11:18] LABS: Platelet Count 49 k/uL (150-450)
[2023-09-17 11:52] VITALS: BP 117/76; PULSE 68; RESP 16; TEMP 98.3
== END ==
LOC: PROCWHC3 11:19
PROVIDERS: ATTEND Specialist
DX: D69.6 Thrombocytopenia, unspecified (principal)
CPT/HCPCS: 36000; 36415; 85027

== ENCOUNTER → 2023-10-16 | Outpatient (CLI) | payer MEDICARE, BC ==
[2023-10-16 08:55] VITALS: BP 115/67; PULSE 86; RESP 15; TEMP 98.2
--- NOTE | 2023-10-16 14:08 | P.PAINPG ---
PQRS Measure Charge Sheet Comment: HISTORY OF PRESENT ILLNESS: A 68 yr old female w at side presents today w severe and chronic LBP secondary to DDD, spondylosis and facet arthropathy without myelopathy for evaluation s/p YUKO L2-L3 #1. Pt states she experienced 80 % pain relief x 4 wks s/p procedure. Pt states pain level is provoked at 2 /10 in intensity, constant, localized in the mid to lower lumbar spine, predominantly axial, achy in character w occasional shooting pain towards the RLE. Pain is provoked by weight bearing. Pain is alleviated by PT x 6 wks in Jun/ Jul 2023, heat, medications, topical Icy-Hot, repositioning and rest. Oswestry axial pain score at 12. Interventional procedures include YUKO L2-L3 x1 Medications include Tyl REVIEW OF ORGAN SYSTEMS: CONSTITUTIONAL: No fevers or chills. No recent weight loss. NEUROLOGICAL: + numbness and tingling along the distal extremities. No seizure disorders or headaches. MUSCULOSKELETAL: + pain PSYCHIATRIC: Denies current depression or suicidal thoughts. Physical Examinations : Constitutional : Cooperative , not in acute distress . Neurologic : Cranial nerve II to XII intact. No focal neurological deficits. Psychiatric : alert & oriented x 3. Matching mood & appropriate affect. Judgment & insight intact. Musculoskeletal : Cervical Spine Motor strength in the deltoid and bicep s: Normal right side. Normal Left side Motor strength biceps and the wrist extensors: Normal right side . Normal left side Motor strength in the triceps muscle: Normal right side. Normal left side Deep tendon reflexes: Normal at the biceps. Normal at Brachioradialis. Normal at triceps Vertebral body tenderness to deep palpation over Cervical facet loading test: positive bilaterally Spurling test: positive bilaterally Neck distraction test: positive bilaterally Pete sign: positive bilaterally Lumbar spine Motor strength lower extremities ,thigh and legs 5/5 Right side , 5/5 Left side Deep tendon reflexes : Normal Knee Jerk. Normal Ankle Jerk Vertebral body tenderness over L3 Barraza Test positive Lumbar facet Loading Test: positive Right / positive Left Range of motion of the lumbar spine Flexion 30 degrees, extension 10 degrees Straight Leg Raise test: Left/ Right positive at degree Wang test: positive right / positive left. Severe tenderness over the Sacroiliac joint on the Right / Left sides Gaenslen test: positive bilaterally Seated flexion test: positive bilaterally. Sacral spine : Severe tenderness over the Sacroiliac joint: right side / left side Range of motion: Flexion of the lumbar spine <60 degrees Range of motion: Extension of the lumbar spine <20 degrees Gaenslen's Test positive Wang test: positive right side / left side Thigh Thrust Test Sacral Thrust Test Imaging: MRI noncontrast of the lumbar spine from 06/10/23 reviewed Assessment/ Plan : Lumbar DDD Recommendation of medication management. Flexeril 5mg PO QHS #30 w 1 RF. Use, side effects, adverse reactions in safe storage discussed. Pt acknowledged understanding. All questions answered. I have spent greater than 30 minutes on patient care today. Dr Pinto was available by phone for the evaluation of this patient. The time was used to review the medical records including relevant urine studies and Prescription history (MAPs), review of the available imaging, evaluation and examination of the patient, coordination of care with the medical staff and if applicable referring physicians, as well as creation of the medical record Home Medications: Ambulatory Orders FLUoxetine HCL [PROzac] 20 mg PO DAILY 04/27/21 Loratadine [Claritin] 10 mg PO DAILY PRN 04/27/21 Losartan/Hydrochlorothiazide [Losartan-Hctz 100-12.5 mg Tab] 1 tab PO DAILY 04/27/21 Metoprolol Tartrate 25 mg PO DAILY 04/27/21 Omeprazole [PriLOSEC] 20 mg PO HS 04/27/21 Rosuvastatin Calcium [Crestor] 5 mg PO HS 04/27/21 Pioglitazone [Actos] 30 mg PO DAILY 10/13/21 Cholecalciferol [Vitamin D3 (25 Mcg = 1000 Iu)] 50 mcg PO DAILY 08/22/22 Acetaminophen Tab [Tylenol] 325 mg PO DIRECTED PRN 09/12/23 [place]-3/Dha/Epa/Fish Oil [Fish Oil 1,000 mg Softgel] 1 each PO DAILY 09/12/23 Unk Probiotic 1 tab PO DAILY 09/12/23 Unk Soliqua 1 injection SQ DAILY 09/12/23 Zinc Gluconate [Zinc] 50 mg PO DAILY 09/12/23 Cyclobenzaprine [Flexeril] 5 mg PO HS PRN 30 Days #30 tab 10/16/23 Controlled Substance Measures - Controlled Substance Measures Is patient prescribed a controlled substance at discharge?: No
== END ==
LOC: PNWHC3 07:50
PROVIDERS: ATTEND Specialist
DX: M47.816 Spondylosis without myelopathy or radiculopathy, lumbar region (principal); M51.36 Other intervertebral disc degeneration, lumbar region; Z88.0 Allergy status to penicillin
CPT/HCPCS: 99211

== ENCOUNTER → 2024-05-11 | Outpatient (CLI) | payer MEDICARE, BC ==
[2024-05-11 15:35] LABS: Anion Gap 11.3 mmol/L (4.00-12.00); Carbon Dioxide 23.7 mmol/L (21.6-31.8); Potassium 3.8 mmol/L (3.5-5.5)
[2024-05-11 18:44] LABS: Basophils # (A) 0 X 10*3/uL (0.00-0.10); Basophils % (A) 0 %; Elliptocytes 2+; Eosinophils # (A) 0.05 X 10*3/uL (0.04-0.35); Eosinophils % (A) 1.8 %; HCT 33.9 % (37.2-46.3); HGB 10.7 g/dL (12.0-15.0); Immature Platelet Fraction 2.8 % (1.1-6.1); Lymphocytes # (A) 0.74 X 10*3/uL (0.90-5.00); Lymphocytes % (A) 26.7 %; MCHC 31.6 g/dL (32.0-37.0); Macrocytosis (M) 2+; Mean Platelet Volume 10.3 FL (9.5-12.2); Monocytes % (A) 7.2 %; NRBC Per 100 WBC 0 X 10*3/uL (0.00-0.01); Neutrophils # (A) 1.77 X 10*3/uL (1.80-7.70); Neutrophils % (A) 63.9 %; Platelet Count 74 X 10*3/uL (140-440); RBC 3.57 X 10*6/uL (4.10-5.20); RDW 14.3 % (11.5-14.5); WBC 2.77 X 10*3/uL (4.50-10.00)
== END | disposition home or self-care (01) ==
LOC: LABPAT 10:36
PROVIDERS: ATTEND Orthopaedic Surgery
DX: Z01.818 Encounter for other preprocedural examination (principal); M23.91 Unspecified internal derangement of right knee; R94.31 Abnormal electrocardiogram [ECG] [EKG]
CPT/HCPCS: 80051; 85025; 93005

== ENCOUNTER 2024-05-21 12:15 | Day surgery (SDC) | payer MEDICARE, BC ==
[2024-05-19 16:33] VITALS: BMI 31.5
--- NOTE | 2024-05-20 13:00 | HP ---
HISTORY AND PHYSICAL DATE OF SURGERY: 05/21/2024. HISTORY OF PRESENT ILLNESS: Emily Caputo is a 68-year-old patient, seen with progressive right knee pain. We discussed options. She elected to proceed with right knee arthroscopy. Consent was obtained. PAST MEDICAL HISTORY: Hypertension, hyperlipidemia, bbx-kgrtlcy-waijxbmml diabetes, gastroesophageal reflux disease. PAST SURGICAL HISTORY: None known. DAILY MEDICATIONS: 1. Losartan. 2. Metoprolol. 3. Omeprazole. 4. Rosuvastatin. 5. Lyrica. ALLERGIES: Penicillin. SOCIAL HISTORY: The patient denies tobacco use. PHYSICAL EVALUATION OF THE RIGHT KNEE: Range of motion is -2/3 to 90 degrees. Moderate effusion. Tenderness along the medial and lateral joint lines. Positive medial Juan Pablo's. Positive lateral Juan Pablo's. Ligaments stable. Hip rotation is without pain. Distal neurovascular exam is intact. IMAGING STUDIES: Radiographs of the right knee revealed mild to moderate lateral compartment osteoarthritis. IMPRESSION: 1. Internal derangement of right knee with medial and lateral meniscal tears. 2. Hdc-lwtswrb-rlluluvzf diabetes. 3. Hypertension. 4. Hyperlipidemia. PLAN: Right knee arthroscopy with partial medial/lateral meniscectomy and debridement. MMODL / IJN: [id number] /
[~2024-05-21 12:15] MED LIST changes: -LACTATED RINGERS 1,000 ML IV SCH; +LIDOCAINE 1% (10MG/ML) FOR IV START INTRADERMA PRN; +droPERidol 5 MG/2 ML VIAL IVP ONE
[2024-05-21] MEDS: IV FLUID CONTINUATION 1,000 ML IV ONE (13:05)
[2024-05-21 13:06] LABS: Glucose,Whole Blood 110 mg/dL (70-110)
[2024-05-21] MEDS: LACTATED RINGERS 1,000 ML IV SCH (13:10)
[2024-05-21] MEDS: DEXAMETHASONE SOD PHOSPHATE 4 MG/ML 1 ML VIAL IV ONE (13:10)
[2024-05-21] MEDS: ONDANSETRON 4 MG/2 ML VIAL IVP ONE (13:11)
[2024-05-21] MEDS ORDERED: PROPOFOL 10 MG/ML 20 ML VIAL IV ONE (13:13)
[2024-05-21] MEDS ORDERED: HYDROmorphone (PF) 1 MG/ML ONE (13:13)
[2024-05-21] MEDS ORDERED: LIDOCAINE 1% INJ 10MG/ML (20 ML MDV) ONE (13:13)
[2024-05-21] MEDS ORDERED: fentaNYL (PF) 50 MCG/ML 2 ML AMP ONE (13:13)
[2024-05-21] MEDS ORDERED: MIDAZOLAM 2 MG/2 ML VIAL ONE (13:13)
[2024-05-21] MEDS: BUPIVACAINE (PF) 0.25% 30 ML VIAL SQ ONE (13:35)
--- NOTE | 2024-05-21 14:07 | P.OP ---
Date of Procedure: 05/21/24 Preoperative Diagnosis: Internal derangement right knee Postoperative Diagnosis: 1. Tear medial and lateral meniscus right knee 2. Grade IV chondromalacia medial femoral condyle right knee 3. Grade IV chondromalacia lateral femoral condyle right knee 4. Reactive synovitis medial, lateral and suprapatellar compartments right knee Procedure(s) Performed: 1. Arthroscopic partial medial and lateral meniscectomy right knee 2. Arthroscopic microfracture medial femoral condyle right knee 3. Arthroscopic microfracture lateral femoral condyle right knee 4. Arthroscopic partial synovectomy medial, lateral and suprapatellar compartments right knee Anesthesia: TIKAA, local Surgeon: Lebron Bae Estimated Blood Loss (ml): 7 Pathology: none sent Condition: stable Disposition: PACU Indications for Procedure: 68-year-old patient seen with progressive right knee pain. After having treatment options discussed, she elected to proceed with arthroscopy. Operative Findings: See description of procedure Description of Procedure: Patient was taken to the operative suite. Patient underwent a general anesthetic by the department of anesthesia. Patient was given preoperative antibiotics. The right lower extremity was placed in a well-padded arthroscopic leg hernandez. The right leg was prepped and draped in the normal sterile orthopedic fashion. A lateral parapatellar and suprapatellar incision was made. Trochars were inserted. Arthroscopy was initiated. Suprapatellar pouch revealed diffuse thick reactive synovitis. The patellofemoral joint appeared to articulate congruently. There was grade I/II chondromalacia of the patella. The scope was guided into the medial gutter. No loose bodies or plica were identified. The scope was then guided into the medial compartment. A medial parapatellar incision was made. Trocar inserted followed by probe. There was a complex tear involving the posterior horn of the medial meniscus. There was an area of grade III/IV chondromalacia medial femoral condyle with large osteochondral flap tears. There was thick reactive synovitis anteriorly. I performed a partial medial meniscectomy getting down to stable meniscal tissue. I performed a chondroplasty of the medial femoral condyle getting down to stable osteochondral tissue. I performed a partial synovectomy decompressing the reactive synovitis. There was an area of exposed bone medial femoral condyle me asuring just over a centimeter. I introduced a microfracture awl and I performed a microfracture to the area of exposed bone penetrating the bone with resultant bleeding at the microfracture site. The residual meniscus was probed and was found to be stable. The residual osteochondral surface was stable. There was good decompression of the synovitis. Scope and probe were then guided into the intercondylar notch. Cruciates were identified, probed and found to be stable. The scope and probe were then guided into lateral compartment. There was a complex tear involving the mid body and posterior horns of the medial meniscus as well as as well as a radial tear along the anterior horn. There were grade III/IV chondromalacia changes of the lateral tibial plateau. There was an area of grade IV chondromalacia of the lateral femoral condyle with exposed bone measuring 1.5 cm in diameter. There was thick reactive synovitis anteriorly. I performed a partial lateral meniscectomy getting down to stable meniscal tissue. I performed a partial synovectomy decompressing the reactive synovitis. I introduced a microfracture awl and I performed a microfracture to the area of exposed bone lateral femoral condyle penetrating the bone with resultant bleeding at the microfracture site. The residual meniscus was probed and was found to be stable. The residual osteochondral surface appeared stable. There was good decompression of the synovitis. The scope was in guided back into the suprapatellar compartment. I introduced a motorized shaver into the suprapatellar compartment. I debrided some piecemeal fragments of meniscus that I encountered. I performed a partial synovectomy. The shaver was now removed. There was good decompression of the synovitis. I took 1 more look around the entire knee, no residual debris. Instruments were now removed from the joint. The joint was infiltrated with .25% Marcaine. Steri-Strips were applied to the portal sites. Sterile dressings were applied. The patient was placed into a MARA hose. No tourniquet was utilized. The patient was awakened, transferred to a bed and taken to recovery stable satisfactory condition.
[2024-05-21 14:08] VITALS: TEMP 98.7
[2024-05-21] MEDS: HYDROmorphone 0.5 MG/0.5 ML SYRINGE IVP PRN (14:10)
[2024-05-21 14:19] LABS: Glucose,Whole Blood 109 mg/dL (70-110)
[2024-05-21] MEDS: diphenhydrAMINE 50 MG/ML 1 ML VIAL IVP STA (14:43)
[2024-05-21 16:12] VITALS: RESP 18
[2024-05-21 17:06] VITALS: BP 107/58; PULSE 65
== END 2024-05-21 17:24 | disposition home or self-care (01) ==
LOC: OR 12:15
PROVIDERS: ATTEND Orthopaedic Surgery
DX: S83.241A Other tear of medial meniscus, current injury, right knee, initial encounter (principal); E11.9 Type 2 diabetes mellitus without complications; E78.5 Hyperlipidemia, unspecified; I10 Essential (primary) hypertension; K21.9 Gastro-esophageal reflux disease without esophagitis; D46.9 Myelodysplastic syndrome, unspecified; M54.9 Dorsalgia, unspecified; F41.9 Anxiety disorder, unspecified; X58.XXXA Exposure to other specified factors, initial encounter; Z79.84 Long term (current) use of oral hypoglycemic drugs; Z88.0 Allergy status to penicillin; Z79.02 Long term (current) use of antithrombotics/antiplatelets; Z79.899 Other long term (current) drug therapy
CPT/HCPCS: 29879; 29880; J2250; J1200; J1100; J0690; J2405; J2001; J3010; J1170 ×2; J2704; J0665

== ENCOUNTER → 2024-07-09 | Outpatient (CLI) | payer MEDICARE, BC ==
--- NOTE | 2024-07-10 08:39 | MM ---
Reason for Exam: Screening (asymptomatic). Last mammogram was performed 1 year(s) and 2 month(s) ago. Patient History: Menarche at age 15. First Full-Term at age 21. Hysterectomy at age 50. Postmenopausal. Patient has history of breast feeding. Patient used Hormonal Contraceptives for 1 year. Daughter had breast cancer, left, age 46. Daughter tested for BRCA2 outcome was positive. Risk Values: Ursula 5 year model risk: 3.0%. NCI Lifetime model risk: 9.1%. Prior Study Comparison: 03/08/2021 Left Diagnostic Mammogram, [facility]. 04/27/2022 Bilateral MG 3D screening mammo w/cad, [facility]. 05/01/2023 Bilateral MG 3D screening mammo w/cad, [facility]. Tissue Density: The breasts are heterogeneously dense, which may obscure small masses. Findings: Analyzed By CAD. There is no suspicious group of microcalcifications or new suspicious mass in either breast. Overall Assessment: Benign, BI-RAD 2 Management: Screening Mammogram of both breasts in 1 year. . Patient should continue monthly self-breast exams. A clinical breast exam by your physician is recommended on an annual basis. This exam should not preclude additional follow-up of suspicious palpable abnormalities. Note on Ursula scores and lifetime risk: 1. A Ursula score greater than 3% is considered moderate risk. If this is the case, consider specialist referral to assess eligibility for a risk reducing agent. 2. If overall lifetime risk for the development of breast cancer is 20% or higher, the patient may qualify for future screening with alternating mammogram and breast MRI. Electronically signed and approved by: Sha Zavala M.D. Radiologis
== END | disposition home or self-care (01) ==
LOC: RADMAMWWP 13:13
PROVIDERS: ATTEND Family Medicine
DX: Z12.31 Encounter for screening mammogram for malignant neoplasm of breast
CPT/HCPCS: 77063; 77067

== ENCOUNTER → 2025-05-06 | Outpatient (CLI) | payer MEDICARE, BC ==
[2025-05-06 15:36] LABS: BUN/Creat Ratio 15.10 Ratio (12.00-20.00); Blood Urea Nitrogen 15.1 mg/dL (9.0-27.0); Chloride 109 mmol/L (96-109); Glucose 106 mg/dL (70-110); Potassium 3.6 mmol/L (3.5-5.5); Sodium 141 mmol/L (135-145)
[2025-05-06 15:37] LABS: Anion Gap 10.00 mmol/L (4.00-12.00); Calcium 9.5 mg/dL (8.7-10.3); Carbon Dioxide 22.0 mmol/L (21.6-31.8)
[2025-05-06 16:09] LABS: INR 1.13 sec (0.93-1.11); Prothrombin Time 12.5 sec (9.9-11.9)
[2025-05-06 16:20] LABS: Basophils # (A) 0 X 10*3/uL (0.00-0.10); Basophils % (A) 0 %; Eosinophils # (A) 0.03 X 10*3/uL (0.04-0.35); Eosinophils % (A) 1.9 %; HCT 31.8 % (37.2-46.3); HGB 10.0 g/dL (12.0-15.0); Immature Grans, Automated 0.60 %; Immature Platelet Fraction 2.3 % (1.1-6.1); Lymphocytes # (A) 0.45 X 10*3/uL (0.90-5.00); Lymphocytes % (A) 28.1 %; MCH 30.0 pg (27.0-32.0); MCHC 31.4 g/dL (32.0-37.0); MCV 95.5 FL (80.0-97.0); Monocytes # (A) 0.12 X 10*3/uL (0.20-1.00); Monocytes % (A) 7.5 %; NRBC Per 100 WBC 0 X 10*3/uL (0.00-0.01); Neutrophils # (A) 0.99 X 10*3/uL (1.80-7.70); Neutrophils % (A) 61.9 %; Platelet Count 41 X 10*3/uL (140-440); RBC 3.33 X 10*6/uL (4.10-5.20); RDW 14.0 % (11.5-14.5); WBC 1.60 X 10*3/uL (4.50-10.00)
== END | disposition home or self-care (01) ==
LOC: LABWHC1 09:48
PROVIDERS: ATTEND Orthopaedic Surgery
DX: Z01.818 Encounter for other preprocedural examination (principal); M17.11 Unilateral primary osteoarthritis, right knee; Z22.322 Carrier or suspected carrier of Methicillin resistant Staphylococcus aureus
CPT/HCPCS: 36415; 80048; 85025; 85610; 87070; 93005

== ENCOUNTER → 2025-05-13 | Outpatient (CLI) | payer MEDICARE, BC ==
--- NOTE | 2025-05-16 13:33 | HP ---
HISTORY AND PHYSICAL ANTICIPATED DATE OF SURGERY: 05/17/2025. HISTORY OF PRESENT ILLNESS: Emily Caputo is a 69-year-old patient seen with symptomatic right knee osteoarthritis. We discussed options regarding treatment. She elected to proceed with right total knee arthroplasty. Consents obtained. Preoperative clearance was provided by Dr. Stephens. PAST MEDICAL HISTORY: MDS, hypertension, hyperlipidemia, and gastroesophageal reflux disease. PAST SURGICAL HISTORY: Knee arthroscopy. DAILY MEDICATIONS: 1. Fluoxetine. 2. Losartan. 3. Metoprolol. 4. Omeprazole. 5. Rosuvastatin. 6. Lyrica. 7. Hydrocodone. 8. Meloxicam. ALLERGIES: Penicillin. SOCIAL HISTORY: She denies tobacco use. PHYSICAL EVALUATION OF THE RIGHT KNEE: Range of motion is -3 to 120 degrees. Mild effusion. Tenderness to the lateral joint line. Crepitance, lateral patellofemoral compartments with range of motion. Pain with patellofemoral compression. Ligaments stable. Hip rotation without pain. Distal neurovascular exam is intact. IMAGING STUDIES: Radiographs of the right knee reveal severe osteoarthritic changes. IMPRESSION: 1. Right knee osteoarthritis. 2. Myelodysplastic syndrome. 3. Hypertension. 4. Hyperlipidemia. 5. Gastroesophageal reflux disease. PLAN: Right total knee arthroplasty. MMODL / IJN: [id number] /
== END | disposition home or self-care (01) ==
LOC: LABPAT 14:28
PROVIDERS: ATTEND Orthopaedic Surgery
DX: Z53.9 Procedure and treatment not carried out, unspecified reason (principal)
CPT/HCPCS: 86850; 86900; 86901

== ENCOUNTER 2025-05-17 07:59 | Day surgery (SDC) | payer MEDICARE, BC ==
[2025-05-14 09:08] VITALS: BMI 32.1
[~2025-05-17 07:59] MED LIST changes: -LIDOCAINE 1% (10MG/ML) FOR IV START INTRADERMA PRN; +MELOXICAM 7.5 MG TAB PO PRN; +TRANEXAMIC 1,000 MG/100ML-NACL 1,000 MG in SALINE 1 100ML.BAG IVPB PRN; -droPERidol 5 MG/2 ML VIAL IVP ONE
[2025-05-17] MEDS: ACETAMINOPHEN TAB 500 MG TAB PO PRN (11:34)
[2025-05-17 11:45] LABS: Glucose,Whole Blood 92 mg/dL (70-110)
[2025-05-17] MEDS: ONDANSETRON 4 MG/2 ML VIAL IVP ONE (11:45)
[2025-05-17] MEDS: LACTATED RINGERS 1,000 ML IV SCH ×2 (11:45→17:39)
[2025-05-17] MEDS: DEXAMETHASONE SOD PHOSPHATE 4 MG/ML 1 ML VIAL IV ONE (11:46)
[2025-05-17] MEDS: IV FLUID CONTINUATION 1,000 ML IV ONE (12:39)
[2025-05-17] MEDS ORDERED: MIDAZOLAM 2 MG/2 ML VIAL ONE (13:23)
[2025-05-17] MEDS ORDERED: SUCCINYLCHOLINE CHLORIDE 200 MG/10 ML VIAL IV ONE (13:23)
[2025-05-17] MEDS ORDERED: GLYCOPYRROLATE 0.2 MG/ML 2 ML VIAL ONE (13:23)
[2025-05-17] MEDS ORDERED: TRANEXAMIC 1,000 MG/100ML-NACL PREMIX BAG ONE (13:23)
[2025-05-17] MEDS ORDERED: PROPOFOL 10 MG/ML 20 ML VIAL IV ONE (13:23)
[2025-05-17] MEDS ORDERED: NEOSTIGMINE 1 MG/ML 10 ML VIAL ONE (13:23)
[2025-05-17] MEDS ORDERED: ROCURONIUM 10 MG/ML (5 ML VIAL) IV ONE (13:23)
[2025-05-17] MEDS ORDERED: LIDOCAINE 1% INJ 10MG/ML (20 ML MDV) ONE (13:23)
[2025-05-17] MEDS ORDERED: HYDROmorphone (PF) 1 MG/ML ONE (13:23)
[2025-05-17] MEDS ORDERED: fentaNYL (PF) 50 MCG/ML 2 ML AMP ONE (13:23)
[2025-05-17] MEDS: ceFAZolin 1,000 MG in SODIUM CHLORIDE 0.9% 1,000 ML IRRIGATION ONE (13:52)
[2025-05-17] MEDS: LACTATED RINGERS 1,000 ML IV ONE (15:03)
[2025-05-17] MEDS ORDERED: ONDANSETRON 4 MG/2 ML VIAL IVP PRN (15:30)
[2025-05-17] MEDS ORDERED: HYDROcodone/APAP 5-325MG 1 EACH TAB PO PRN (15:30)
[2025-05-17] MEDS ORDERED: HYDROmorphone 0.5 MG/0.5 ML SYRINGE IVP PRN ×2 (15:30)
[2025-05-17] MEDS ORDERED: NALOXONE 0.4 MG/ML 1 ML VIAL IV PRN (15:30)
--- NOTE | 2025-05-17 15:30 | P.OP ---
Date of Procedure: 05/17/25 Preoperative Diagnosis: Right knee osteoarthritis Postoperative Diagnosis: Right knee osteoarthritis Procedure(s) Performed: Right total knee arthroplasty Implants: 1. DePuy attune size 4 narrow right cruciate retaining cemented femur 2. DePuy attune size 4 fixed-bearing cemented tibial baseplate 3. DePuy attune size 4 fixed-bearing cruciate retaining 5 mm polyethylene tibial insert 4. DePuy attune 32 mm all polyethylene cemented patella Anesthesia: GETA Surgeon: Lebron Bae Solar Technician #1: Shahriar Adams Estimated Blood Loss (ml): 75 Pathology: none sent Condition: stable Disposition: PACU Indications for Procedure: 69-year-old patient seen with symptomatic right knee osteoarthritis. After having treatment options discussed, she elected to proceed with total knee arthroplasty. Operative Findings: See description of procedure Description of Procedure: Patient was taken to the operative suite after having an adductor canal catheter placed by the department of anesthesia. Patient underwent a general anesthetic by the department of anesthesia. Patient was given preoperative IV intake antibiotics and TXA. A well-padded tourniquet was placed about the right lower extremity. The lower extremity was then prepped and draped in the normal sterile orthopedic fashion. The extremity was elevated, a tourniquet was insufflated to 300. A standard anterior incision was made sharply through skin. Dissection was taken down through the subcutaneous soft tissues down to the extensor mechanism. A medial arthrotomy was performed, patella was everted and knee was flexed. There was advanced osteoarthritis noted. I introduced my distal intramedullary femoral drill. I then introduced the distal femoral cutting jig. Shahriar ACOSTA secured the cutting jig with 2 pins. I held retractors in position while Shahriar ACOSTA performed the distal femoral resection through the guide area we now removed her distal femoral cutting guide. We now placed our 4-in-1 femoral cutting block and positioned and it was secured with 2 pins by Shahriar ACOSTA while I held the block in position. The distal femoral finishing was now completed. A proximal tibial cutting guide was positioned. I held the guide in the appropriate position with both hands well Talib ACOSTA inserted stabilizing pins into the guide. Proximal tibial cut was made. We now placed a trial femoral component into position, along with an appropriate size tibial tray and insert. We now took the knee through range of motion and had full extension good flexion and good overall soft tissue balance noted. The patella was everted and stabilized with 2 towel clips held by Shahriar ACOSTA while I performed a flush with patellar quad tendon utilizing a fresh sawblade. We templated the patella, appropriate drill holes were made. An appropriate trial patella was positioned, knee was taken through full range of motion with the patella tracking very nicely. The trial patella was removed. Drill holes were made through the femoral component. All trial components were removed after marking off the appropriate rotation of the tibia. Retractors were now positioned along the proximal tibia. An appropriate keel punch was made with the appropriate size tibial guide by myself on Shahriar ACOSTA assisted by holding retractors. At this point appropriate size implants were chosen and opened. The joint was irrigated copiously with pulse lavage mechanical irrigation. The wound was irrigated with pulse lavage mechanical irrigation. We mixed antibiotic methylmethacrylate. We placed the knee into flexion. We placed multiple retractors assisted by Shahriar ACOSTA to expose the proximal tibia. Once the methyl methacrylate was ready, the tibial component was cemented into place removing any excess methylmethacrylate form by both myself and Shahriar ACOSTA. The femoral component was cemented into place removing the removing any excess methylmethacrylate performed by both myself and Shahriar ACOSTA. We then inserted the appropriate size polyethylene tibial insert. We made sure that it was locked into position. We took the knee into full extension, and then back in a flexion making sure we had removed any excess methylmethacrylate. The patellar component was then cemented down and secured with clamp. Excess methylmethacrylate removed. We kept the knee in full extension, patellar clamp in position until methylmethacrylate had hardened. Once it had hardened the patellar clamp was removed. The knee was taken through full range of motion. The patella tracked nicely. There was good soft tissue balancing. The tourniquet was now released. Additional hemostasis was achieved via electrocautery. A second gram of TXA was given. The wound again was irrigated with pulse lavage mechanical irrigation. The extensor mechanism was repaired with Ethibond suture. We checked the repair with range of motion and it was stable. The subcutaneous soft tissues were repaired with Vicryl in layers. The skin was approximated with pernio/Dermabond. Sterile dressings were applied followed by loose web roll and Ish bandage. The patient was transferred to a bed, and taken to recovery in stable and satisfactory condition. Shahriar ACOSTA assisted with this complex procedure.
[2025-05-17] MEDS: HYDROmorphone 0.5 MG/0.5 ML SYRINGE IVP PRN (15:50)
[2025-05-17 16:40] LABS: Glucose,Whole Blood 133 mg/dL (70-110)
[2025-05-17] MEDS: fentaNYL (PF) 50 MCG/ML 2 ML AMP IVP PRN (16:51)
--- NOTE | 2025-05-17 17:07 | XR ---
EXAMINATION TYPE: XR knee limited RT DATE OF EXAM: 05/17/2025 3:58 PM COMPARISON: None. CLINICAL INDICATION: Female, 69 years old with history of Evaluation for Postop abnormality and align ment, pain TECHNIQUE: 2 view(s) obtained. FINDINGS: There is placement tibial femoral compartments for right knee prosthesis. Postsurgical soft tissue ch anges are present. No acute fracture evident. IMPRESSION: 1. No acute fracture post replacement [facility], Workstation: [facility], 05/17/2025 5:05 PM
[2025-05-17 20:47] LABS: Glucose,Whole Blood 167 mg/dL (70-110)
[2025-05-17] MEDS: ASPIRIN 81 MG PO SCH (21:47)
[2025-05-17] MEDS: PIOGLITAZONE 30 MG TAB PO SCH (21:47)
[2025-05-17] MEDS: HYDROcodone/APAP 7.5-325MG 1 EACH TAB PO PRN (21:47)
[2025-05-17] MEDS: SENNOSIDES-DOCUSATE SODIUM 1 EACH TAB PO SCH (21:47)
[2025-05-18] MEDS: HYDROmorphone 0.5 MG/0.5 ML SYRINGE IVP PRN (05:58)
[2025-05-18 06:50] LABS: Glucose,Whole Blood 136 mg/dL (70-110)
[2025-05-18] MEDS ORDERED: DEXTROSE 50% SYRINGE 50 ML IVP PRN ×2 (09:20)
[2025-05-18 09:57] LABS: Basophils # (A) 0 X 10*3/uL (0.00-0.10); Basophils % (A) 0 %; Eosinophils # (A) 0 X 10*3/uL (0.04-0.35); Eosinophils % (A) 0 %; HCT 31.5 % (37.2-46.3); HGB 9.8 g/dL (12.0-15.0); Immature Grans, Automated 0.40 %; Immature Platelet Fraction 1.8 % (1.1-6.1); Lymphocytes # (A) 0.42 X 10*3/uL (0.90-5.00); Lymphocytes % (A) 8.8 %; MCH 30.0 pg (27.0-32.0); MCHC 31.1 g/dL (32.0-37.0); MCV 96.3 FL (80.0-97.0); Monocytes # (A) 0.39 X 10*3/uL (0.20-1.00); Monocytes % (A) 8.2 %; NRBC Per 100 WBC 0 X 10*3/uL (0.00-0.01); Neutrophils # (A) 3.92 X 10*3/uL (1.80-7.70); Neutrophils % (A) 82.6 %; Platelet Count 56 X 10*3/uL (140-440); RBC 3.27 X 10*6/uL (4.10-5.20); RDW 14.4 % (11.5-14.5); WBC 4.75 X 10*3/uL (4.50-10.00)
[2025-05-18] MEDS: METOPROLOL TARTRATE 25 MG TAB PO SCH (10:12)
[2025-05-18] MEDS: CHOLECALCIFEROL 25 MCG (1000 IU) TABLET PO SCH (10:12)
[2025-05-18] MEDS: LOSARTAN 50 MG TAB PO SCH (10:12)
--- NOTE | 2025-05-18 10:57 | P.PN ---
Subjective Progress Note Date: 05/18/25 Principal diagnosis: Right knee osteoarthritis Patient was seen at bedside this morning lying in the semirecumbent position with family present during encounter. Patient states she just finished working with physical therapy and was able to walk around the room a little bit however she was not able to get to the hallway and do the stairs. She says she has having a lot of pain at this time. Patient is needing IV Dilaudid until oral pain medication. Patient states she does have a walker for home. Patient states she has urinated this morning without any issue. States she has not had a bowel movement yet, however, patient states she is passing gas. Patient denies any other issues at this time. Objective - Vital Signs Vital signs: Vital Signs Temp 98.4 F 05/18/25 08:00 Pulse 75 05/18/25 09:30 Resp 18 05/18/25 09:30 BP 99/63 05/18/25 08:00 Pulse Ox 96 05/18/25 08:00 FiO2 Intake & Output 05/17/25 05/18/25 05/18/25 18:59 06:59 18:59 Intake Total 1990 Output Total 75 Balance 191 Weight 78.2 kg Intake: IV 1651 Blood Product 340 Platelet Pheresis Pas 340 Psoralen Unit [id number] Output: Estimated Blood Loss 75 Other: Voiding Method Toilet # Voids 0 2 # Bowel Movements 0 - Exam Right knee: Incision is clean, dry, and intact. The silver foam dressing is in good condition. There is minimal soft tissue swelling and ecchymosis surrounding the medial and lateral aspects of the incision. Calf is soft, no tenderness with palpation. Plantar flexion, dorsiflexion, EHL, FHL are intact. Sensory exam to light touch throughout the extremity is intact, dorsal pedis pulses 2+. - Labs CBC & Chem 7: 05/18/25 02:58 Labs: Abnormal Lab Results - Last 24 Hours (Table) 05/17/25 05/17/25 05/18/25 Range/Units 16:39 20:45 02:58 RBC 3.27 L (4.10-5.20) X 10*6/uL Hgb 9.8 L (12.0-15.0) g/dL Hct 31.5 L (37.2-46.3) % MCHC 31.1 L (32.0-37.0) g/dL Plt Count 56 L (140-440) X 10*3/uL Lymphocytes # 0.42 L (0.90-5.00) X 10*3/uL Eosinophils # 0 L (0.04-0.35) X 10*3/uL POC Glucose (mg/dL) 133 H 167 H (70-110) mg/dL 05/18/25 Range/Units 06:48 RBC (4.10-5.20) X 10*6/uL Hgb (12.0-15.0) g/dL Hct (37.2-46.3) % MCHC (32.0-37.0) g/dL Plt Count (140-440) X 10*3/uL Lymphocytes # (0.90-5.00) X 10*3/uL Eosinophils # (0.04-0.35) X 10*3/uL POC Glucose (mg/dL) 136 H (70-110) mg/dL Assessment and Plan Assessment: 1. Right knee osteoarthritis -Postop day 1 status post right total knee arthroplasty Plan: 1. Right knee osteoarthritis -right total knee arthroplasty performed yesterday, 05/17/2025. Patient stable bedside this morning. Patient does have a walker for home. Due to the patient's pain we will plan to keep patient 1 more night for additional pain control and PT/OT. Pain medication as needed. Plan for discharge home tomorrow with health services 2. Appreciate medical management 3. Pain management - norco 4. DVT prophylaxis - aspirin 5. GI prophylaxis - senna 6. PT/OT -weightbearing as tolerated with walker 7. Encourage incentive spirometer use 8. Discharge planning -plan for discharge home tomorrow with health services Time with Patient: Less than 30
[2025-05-18 11:18] LABS: Glucose,Whole Blood 136 mg/dL (70-110)
[2025-05-18] MEDS: NON FORMULARY DRUG (Insulin Glargine/Lixisenatide [Soliqua 100 Unit-33 Mcg/Ml Pen] 3 ML In SQ SCH (11:20)
[2025-05-18] MEDS: INSULIN LISPRO (HumaLOG) 100 UNIT/ML 10 mL VL SQ SCH (11:20)
[2025-05-18] MEDS: LOSARTAN-HCTZ 50-12.5 MG 1 EACH TAB PO SCH (11:42)
[2025-05-18] MEDS: MULTIVITAMINS, THERA 1 EACH TAB PO SCH (12:33)
--- NOTE | 2025-05-18 13:18 | P.CONS ---
History of Present Illness - Reason for Consult Consult date: 05/18/25 Medical management Requesting physician: Lebron Bae - Chief Complaint Symptomatic right knee osteoarthritis - History of Present Illness This is a pleasant 69-year-old female with past medical history significant for osteoarthritis, pancytopenia, diabetes mellitus, hypertension, hyperlipidemia, anxiety and multiple other medical issues admitted with symptomatic right knee osteoarthritis status post right total knee arthroplasty . Pain management is currently an issue as patient was unable to have any blocks due to her pancytopenia, platelets currently 56, hemoglobin 9.8.No s/sx bleeding. Blood pressure soft, losartan/HCTZ placed on hold, continue on metoprolol. Participated with PT, getting out of bed, not yet completed stairs. Passing flatus. Denies chest pain, palpitations or shortness of breath. Denies lightheadedness, dizziness or focal deficits. Blood sugars controlled. Review of Systems Constitutional: Denied fever or chills. Cardio vascular: denied any chest pain, palpitations Gastrointestinal denied any nausea vomiting. Denies abdominal pain Pulmonary: Denied any shortness of breath cough Neurologic denied any new focal deficits ROS Statement: Those systems with pertinent positive or pertinent negative responses have been documented in the HPI. ROS Other: All systems not noted in ROS Statement are negative. Past Medical History Past Medical History: Blood Disorder, Diabetes Mellitus, GERD/Reflux, Hyperlipidemia, Hypertension Additional Past Medical History / Comment(s): PANTOCYTOPENIA,( MDS). collapsing discs in her back pressing on nerves. History of Any Multi-Drug Resistant Organisms: None Reported Past Surgical History: Hysterectomy Additional Past Surgical History / Comment(s): colonoscopy,egd, BONE MARROW BX x2. , Past Anesthesia/Blood Transfusion Reactions: Motion Sickness Additional Past Anesthesia/Blood Transfusion Reaction / Comm: no reactions with prior platelet transfusions Past Psychological History: Anxiety Additional Psychological History / Comment(s): has been taking prozac for many years - unsure why Smoking Status: Never smoker Past Alcohol Use History: Rare Past Drug Use History: None Reported - Past Family History Mother Family Medical History: Thyroid Disorder Additional Family Medical History / Comment(s): Graves disease. Father Family Medical History: Coronary Artery Disease (CAD) Daughter(s) Family Medical History: Cancer Additional Family Medical History / Comment(s): Breast cancer. Medications and Allergies Home Medications Medication Instructions Recorded Confirmed Type FLUoxetine HCL [PROzac] 20 mg PO QAM 04/27/21 05/17/25 History Losartan/Hydrochlorothiazide 1 tab PO QAM 04/27/21 05/17/25 History [Losartan-Hctz 100-12.5 mg Tab] Metoprolol Tartrate 25 mg PO QAM 04/27/21 05/17/25 History Rosuvastatin Calcium [Crestor] 5 mg PO Q2D 04/27/21 05/17/25 History Pioglitazone [Actos] 30 mg PO HS 10/13/21 05/17/25 History Cholecalciferol [Vitamin D3 (25 50 mcg PO DAILY 08/22/22 05/17/25 History Mcg = 1000 Iu)] Insulin Glargine/Lixisenatide 30 units SQ DAILY 05/20/24 05/17/25 History [Soliqua 100 Unit-33 Mcg/ml Pen] L.acidoph,Paracasei, B.lactis 1 cap PO DAILY 05/14/25 05/17/25 History [Probiotic] Melatonin 5 mg PO HS 05/14/25 05/17/25 History Winfield-3/Dha/Epa/Fish Oil [Fish Oil 1 each PO DAILY 05/14/25 05/17/25 History 1,000 mg Softgel] Allergies Allergy/AdvReac Type Severity Reaction Status Date / Time Penicillins Allergy Rash/Hives Verified 05/17/25 11:27 adhesive tape AdvReac tears skin Verified 05/17/25 11:27 vancomycin AdvReac needs Verified 05/17/25 11:27 benadryl before, causes red skin and itching Physical Exam Vitals: Vital Signs Temp Pulse Pulse Pulse Resp BP BP 05/18/25 09:30 68 75 18 05/18/25 08:00 98.4 F 75 18 05/18/25 02:49 98.4 F 71 16 05/17/25 19:05 97.9 F 72 17 05/17/25 18:30 68 20 05/17/25 17:29 68 20 134/76 05/17/25 17:15 69 20 132/73 05/17/25 17:00 71 20 162/81 05/17/25 16:45 74 19 156/84 05/17/25 16:30 103 H 19 152/98 05/17/25 16:15 101 H 19 145/80 05/17/25 16:00 98 19 126/101 05/17/25 15:45 75 19 132/95 05/17/25 15:38 97 F L 69 19 127/74 05/17/25 12:41 98.2 F 57 L 16 106/64 05/17/25 12:21 97.9 F 52 L 16 113/64 05/17/25 12:08 98 F 56 L 16 111/63 BP Pulse Ox 05/18/25 09:30 05/18/25 08:00 99/63 96 05/18/25 02:49 117/70 98 05/17/25 19:05 116/70 97 05/17/25 18:30 115/69 100 05/17/25 17:29 100 05/17/25 17:15 94 L 05/17/25 17:00 100 05/17/25 16:45 97 05/17/25 16:30 97 05/17/25 16:15 97 05/17/25 16:00 100 05/17/25 15:45 100 05/17/25 15:38 100 05/17/25 12:41 100 05/17/25 12:21 100 05/17/25 12:08 100 Intake and Output 05/17/25 05/18/25 05/18/25 22:59 06:59 14:59 Intake Total 600 Output Total 75 Balance 525 Intake: IV 600 Output: Estimated Blood Loss 75 Other: Voiding Method Toilet # Voids 0 2 # Bowel Movements 0 Weight 78.2 kg PHYSICAL EXAM: VITAL SIGNS: [Reviewed] GENERAL: Sitting up in bed, alert and oriented x 3,NAD HEENT: Normocephalic, atraumatic ,conjunctivae normal. eyes normal. MMM. NECK: Supple, no JVD. CARDIOVASCULAR: S1, S2, regular.. No murmur RESPIRATION: Unlabored, equal air entry, clear to auscultation with bilateral ba ses diminished. ABDOMEN: Soft, nontender . No guarding. no masses palpable. Positive bowel sounds. LEGS: Right lower extremity dressing clean dry and intact with ice present, minimal edema. calf soft , no tenderness, peripheral pulses intact. NERVOUS SYSTEM: Cranial N 2-12 grossly normal. Moves all 4 limbs. No focal deficits. Strength and sensation grossly intact. Skin: Warm and dry, no rash Results CBC & Chem 7: 05/18/25 02:58 Labs: Abnormal Lab Results - Last 24 Hours (Table) 05/17/25 05/17/25 05/18/25 Range/Units 16:39 20:45 02:58 RBC 3.27 L (4.10-5.20) X 10*6/uL Hgb 9.8 L (12.0-15.0) g/dL Hct 31.5 L (37.2-46.3) % MCHC 31.1 L (32.0-37.0) g/dL Plt Count 56 L (140-440) X 10*3/uL Lymphocytes # 0.42 L (0.90-5.00) X 10*3/uL Eosinophils # 0 L (0.04-0.35) X 10*3/uL POC Glucose (mg/dL) 133 H 167 H (70-110) mg/dL 05/18/25 05/18/25 Range/Units 06:48 11:17 RBC (4.10-5.20) X 10*6/uL Hgb (12.0-15.0) g/dL Hct (37.2-46.3) % MCHC (32.0-37.0) g/dL Plt Count (140-440) X 10*3/uL Lymphocytes # (0.90-5.00) X 10*3/uL Eosinophils # (0.04-0.35) X 10*3/uL POC Glucose (mg/dL) 136 H 136 H (70-110) mg/dL Assessment and Plan Assessment: Symptomatic right knee osteoarthritis, status post right total knee arthroplasty Postoperative acute hypoxic respiratory failure secondary to atelectasis, expected outcome Chronic pancytopenia, follows with Dr. Stephens Diabetes mellitus Hypertension Hyperlipidemia Gastroesophageal reflux disease Anxiety Obesity, BMI 33 Plan: Continue on current medication regime ,monitoring and symptomatic treatment. Pain management and DVT prophylaxis as per primary. GI prophylaxis with PPI ordered. Aggressive pulmonary toileting, incentive spirometer reinforced-currently up to 500. PT. Ongoing monitoring of blood pressure with l osartan/HCTZ on hold, continue metoprolol. Maintain tight glycemic control, close monitoring of Accu-Cheks with NovoLog insulin sliding scale ordered. The impression and plan of care has been dictated as directed. : I performed a history and examination of this patient, discussed the same with the dictator. I agree with the dictator's note ,documented as a scribe. Any additional findings or plans will be noted.
[2025-05-18] MEDS: PANTOPRAZOLE 40 MG/10 ML VIAL IVP SCH (15:03)
[2025-05-18 16:45] LABS: Glucose,Whole Blood 122 mg/dL (70-110)
[2025-05-18 20:36] LABS: Glucose,Whole Blood 149 mg/dL (70-110)
[2025-05-18] MEDS: ATORVASTATIN 10 MG TAB PO SCH (21:25)
[2025-05-19 06:04] LABS: Glucose,Whole Blood 141 mg/dL (70-110)
[2025-05-19] MEDS ORDERED: CYCLOBENZAPRINE 5 MG TAB PO PRN (07:08)
[2025-05-19 07:52] VITALS: RESP 16
[2025-05-19] MEDS: oxyCODONE-APAP 7.5-325MG 1 EACH TAB PO SCH (08:24)
[2025-05-19] MEDS: KETOROLAC 15 MG/ML 1 ML VIAL IVP STA (08:24)
--- NOTE | 2025-05-19 08:35 | P.PN ---
Subjective Progress Note Date: 05/19/25 Principal diagnosis: Right knee osteoarthritis Patient seen and examined this morning. Patient is resting in bed. She reports that her pain has not been managed on the current medications. Medications have been adjusted. Patient states that she has been attempting to work with physical therapy and be ambulatory within room the best that she can tolerate. Surgical incision to the right knee, dressing is clean dry and intact. Continue to encourage patient to increase her activity as tolerated. Utilize ice therapy as needed. Discussed discharge later today, patient verbalizes understanding. Objective - Vital Signs Vital signs: Vital Signs Temp 98.2 F 05/19/25 07:10 Pulse 72 05/19/25 07:10 Resp 16 05/19/25 07:10 BP 110/70 05/19/25 07:10 Pulse Ox 95 05/19/25 07:10 FiO2 Intake & Output 05/18/25 05/19/25 05/19/25 18:59 06:59 18:59 Other: Voiding Method Toilet # Voids 3 3 # Bowel Movements 0 - Exam Physical Examination General: The patient is awake and alert, in no acute distress. Skin: Skin is warm and dry with no obvious rashes or lesions. Surgical incision to the right knee, dressing is CDI. Eye: Pupils are equal, round and reactive to light, extra-ocular movements are intact; there is normal conjunctiva bilaterally. Neck: The neck is supple, there is no tenderness and ROM intact. Respiratory: Respirations are non-labored. Gastrointestinal: Soft, non-distended, non-tender abdomen. Back: There is no tenderness to palpation in the midline, paralumbar, parathoracic or buttocks region. There is no obvious deformity. Musculoskeletal: ROM limited secondary to pain and stiffness from surgical procedure. Right: Shoulder abduction 5/5, elbow flexors 5/5, wrist dorsiflexors 5/5. finger abductor 5/5, primer press operator 5/5, hip flexor 4/5, knee flexor 3-/5, ankle dorsiflexor 4/5, ankle plantarflexion 4/5 and extensor hallucis 5/5 Left: Shoulder abduction 5/5, elbow flexors 5/5, wrist dorsiflexors 5/5. finger abductor 5/5, primer press operator 5/5, hip flexor 5/5, knee flexor 5/5, ankle dorsiflexor 5/5, ankle plantarflexion 5/5 and extensor hallucis 5/5. Neurological: CN 2-12 intact. There are no obvious motor or sensory deficits. Movement and coordination equal and intact. Sensory exam to light touch intact C5-T1 and intact from L2-S1. Reflexes 2/4 in bilateral upper and lower extremities. Negative Hoffmans, babinski, and clonus signs. Psychiatric: Cooperative, appropriate mood & affect, normal judgment. - Labs CBC & Chem 7: 05/18/25 02:58 Labs: Abnormal Lab Results - Last 24 Hours (Table) 05/18/25 05/18/25 05/18/25 Range/Units 02:58 11:17 16:44 RBC 3.27 L (4.10-5.20) X 10*6/uL Hgb 9.8 L (12.0-15.0) g/dL Hct 31.5 L (37.2-46.3) % MCHC 31.1 L (32.0-37.0) g/dL Plt Count 56 L (140-440) X 10*3/uL Lymphocytes # 0.42 L (0.90-5.00) X 10*3/uL Eosinophils # 0 L (0.04-0.35) X 10*3/uL POC Glucose (mg/dL) 136 H 122 H (70-110) mg/dL 05/18/25 05/19/25 Range/Units 20:34 06:02 RBC (4.10-5.20) X 10*6/uL Hgb (12.0-15.0) g/dL Hct (37.2-46.3) % MCHC (32.0-37.0) g/dL Plt Count (140-440) X 10*3/uL Lymphocytes # (0.90-5.00) X 10*3/uL Eosinophils # (0.04-0.35) X 10*3/uL POC Glucose (mg/dL) 149 H 141 H (70-110) mg/dL Assessment and Plan Assessment: Postop day 2: Right total knee arthroplasty Plan: -Appreciate information systems consultant and team management. -Activity: Ambulate QID, OOB all meals, up and about, limit lifting bending twisting to less than 5 lbs. Use walker or cane if needed for stability. -Daily PT/OT, increase ambulation strength and balance. -Pain control: Medications adjusted. -Meds: reviewed -GI ppx: senna, Miralax -DVT PPX: Aspirin 81mg daily -Hygiene: Maintain incision clean and dry. May change dressing as needed, please document in notes if performed. -Encourage IS 10x/hr -Dispo: Discharge home with homecare latr today. *I reviewed and discussed this case with my attending Dr. Francis, whom has reviewed this chart and films and is in agreement with assessment and plan of care as outlined above. I have personally seen and examined the patient, performed the documentation and the assessment and plan as written. Number of minutes spent on the visit: 15m.
--- NOTE | 2025-05-19 08:41 | P.DS ---
Providers Date of admission: 05/17/25 Expected date of discharge: 05/19/25 Attending physician: Lebron Bae Consults: 05/17/25 15:30 Consult Physician Routine Consulting Provider: Joshua Faith Reason/Comments: Medical management Do you want consulting provider notified?: Yes Primary care physician: Joshua Faith [facility] Course: Hospital Course: The patient was evaluated preoperatively and found to have the diagnosis of right knee osteoarthritis. They underwent appropriate preoperative care and were willing to undergo the intended procedure. They underwent a successful right total knee arthroplasty, were recovered appropriately and sent to the floor. While on the floor they worked with physical therapy, occupational therapy and nursing to enhance their recovery experience. Their pain was well controlled through their stay and they were started on appropriate medications, DVT ppx modalities, activity and dietary needs. Daily labs were monitored closely, and transfusions were only used when necessary. Medicine as well as other consulting services have made their input and have helped with our team approach and multidisciplinary care. PT milestones have been met and passed and they have made the recommendation of home with home care for this patient and treating providers agree with this care path. The patient will be discharged home with appropriate medications, instructions and follow-up information and in stable condition. Patient Condition at Discharge: Good Plan - Discharge Summary Discharge Rx Participant: No New Discharge Prescriptions: New oxyCODONE HCL/ACETAMINOPHEN [Percocet 7.5-325 mg] 1 tab PO Q4HR PRN #40 tab PRN Reason: Pain Cyclobenzaprine [Flexeril] 5 mg PO TID #40 tablet Aspirin [Adult Low Dose Aspirin EC] 81 mg PO BID #60 tab Sennosides/Docusate Sodium [Senna Plus 8.6-50 mg Tablet] 2 each PO DAILY PRN #20 tab PRN Reason: Constipation No Action Rosuvastatin Calcium [Crestor] 5 mg PO Q2D Losartan/Hydrochlorothiazide [Losartan-Hctz 100-12.5 mg Tab] 1 tab PO QAM FLUoxetine HCL [PROzac] 20 mg PO QAM Insulin Glargine/Lixisenatide [Soliqua 100 Unit-33 Mcg/ml Pen] 30 units SQ DAILY Melatonin 5 mg PO HS [place]-3/Dha/Epa/Fish Oil [Fish Oil 1,000 mg Softgel] 1 each PO DAILY Metoprolol Tartrate 25 mg PO QAM Pioglitazone [Actos] 30 mg PO HS Cholecalciferol [Vitamin D3 (25 Mcg = 1000 Iu)] 50 mcg PO DAILY L.acidoph,Paracasei, B.lactis [Probiotic] 1 cap PO DAILY Discharge Medication List FLUoxetine HCL [PROzac] 20 mg PO QAM 04/27/21 [History] Losartan/Hydrochlorothiazide [Losartan-Hctz 100-12.5 mg Tab] 1 tab PO QAM 04/27/21 [History] Metoprolol Tartrate 25 mg PO QAM 04/27/21 [History] Rosuvastatin Calcium [Crestor] 5 mg PO Q2D 04/27/21 [History] Pioglitazone [Actos] 30 mg PO HS 10/13/21 [History] Cholecalciferol [Vitamin D3 (25 Mcg = 1000 Iu)] 50 mcg PO DAILY 08/22/22 [History] Insulin Glargine/Lixisenatide [[place]iqua 100 Unit-33 Mcg/ml Pen] 30 units SQ DAILY 05/20/24 [History] L.acidoph,Paracasei, B.lactis [Probiotic] 1 cap PO DAILY 05/14/25 [History] Melatonin 5 mg PO HS 05/14/25 [History] [place]-3/Dha/Epa/Fish Oil [Fish Oil 1,000 mg Softgel] 1 each PO DAILY 05/14/25 [History] Aspirin [Adult Low Dose Aspirin EC] 81 mg PO BID #60 tab 05/19/25 [Rx] Cyclobenzaprine [Flexeril] 5 mg PO TID #40 tablet 05/19/25 [Rx] Sennosides/Docusate Sodium [Senna Plus 8.6-50 mg Tablet] 2 each PO DAILY PRN #20 tab 05/19/25 [Rx] oxyCODONE HCL/ACETAMINOPHEN [Percocet 7.5-325 mg] 1 tab PO Q4HR PRN #40 tab 05/19/25 [Rx] Follow up Appointment(s)/Referral(s): [facility] [NON-STAFF] - As Needed (Continuous Passive Motion knee machine) Gera Mcneil PAC [PHYSICIAN PHARMACIST APPRENTICE] - 06/01/25 11:00 am [facility] Visiting Nurse, [NON-STAFF] - 1 Week Patient Instructions/Handouts: *Surgery [facility] - ([facility]) Arthroscopic Knee Post-Op Instructions Activity/Diet/Wound Care/Special Instructions: Orthopedic Discharge Instructions: 1. Wound care and infection precautions, keep incision dry and covered while showering, no lotions, creams, moisturizers. No soaking, pools, hot tubs. Do not scrub over incision. 2. Weight-bear as tolerated with walker / cane until follow-up. 3. Ice and elevate when necessary. Do not exceed 20 minutes per hour with ice pack. 4. Utilize compression sleeve until seen at first follow up appointment. 5. Pain meds and anticoagulants per prescription. 6. Pain medication has potential to cause constipation. Increase oral fluid and fiber intake. Contact primary care provider if you have not had a bowel movement within 48 hours after discharge. 7. No anti-inflammatory medication until discussed at first post operative visit, this including Motrin, Aleve, Mobic, Diclofenac. 8. Follow up in office at 2 weeks postop with Talib Mcneil PA-C / Shahriar Adams PA-C 9. Follow up with your primary care doctor 7-10 days after discharge. 10. Contact [facility] with any questions, . Keep incision clean, dry, intact. While showering, cover silver foam dressing with Saran wrap. Keep silver foam dressing on until 05/24/2025. Once dressing is removed on 05/24/2025, it is okay to shower directly over the incision. Discharge Disposition: HOME WITH HOME HEALTH SERVICES
[2025-05-19] MEDS: ACETAMINOPHEN IV (For NPO) 1,000 MG in EMPTY BAG 1 BAG IVPB STA (10:58)
[2025-05-19 11:34] LABS: Glucose,Whole Blood 140 mg/dL (70-110)
--- NOTE | 2025-05-19 11:58 | P.PN ---
Subjective Progress Note Date: 05/19/25 05/18/2025 this is a pleasant 69-year-old female with past medical history significant for osteoarthritis, pancytopenia, diabetes mellitus, hypertension, hyperlipidemia, anxiety and multiple other medical issues admitted with symptomatic right knee osteoarthritis status post right total knee arthroplasty . Pain management is currently an issue as patient was unable to have any blocks due to her pancytopenia, platelets currently 56, hemoglobin 9.8.No s/sx bleeding. Blood pressure soft, losartan/HCTZ placed on hold, continue on metoprolol. Participated with PT, getting out of bed, not yet completed stairs. Passing flatus. Denies chest pain, palpitations or shortness of breath. Denies lightheadedness, dizziness or focal deficits. Blood sugars controlled. 05/19/2025 reports rough night, pain uncontrolled. This morning, rating pain at a 10, evaluated by orthopedic surgery, pain management adjusted to Percocet with a dose of Toradol. Denies chest pain, palpitations or shortness of breath. Passing flatus, no bowel movement. Objective - Vital Signs Vital signs: Vital Signs Temp 98.2 F 05/19/25 07:10 Pulse 72 05/19/25 07:10 Resp 16 05/19/25 07:10 BP 110/70 05/19/25 07:10 Pulse Ox 95 05/19/25 07:10 FiO2 Intake & Output 05/18/25 05/19/25 05/19/25 18:59 06:59 18:59 Other: Voiding Method Toilet # Voids 3 3 # Bowel Movements 0 - Exam VITAL SIGNS: [Reviewed] GENERAL: Sitting up in bed, alert and oriented x 3,NAD HEENT: Normocephalic, atraumatic ,conjunctivae normal. eyes normal. MMM. NECK: Supple, no JVD. CARDIOVASCULAR: S1, S2, regular.. No murmur RESPIRATION: Unlabored, equal air entry, clear to auscultation with bilateral bases diminished. ABDOMEN: Soft, nontender . No guarding. no masses palpable. Positive bowel sounds. LEGS: Right lower extremity dressing clean dry and intact with ice present, positive edema. calf soft , no tenderness, peripheral pulses intact. NERVOUS SYSTEM: Cranial N 2-12 grossly normal. Moves all 4 limbs. No focal deficits. Strength and sensation grossly intact. Skin: Warm and dry, no rash - Labs CBC & Chem 7: 05/18/25 02:58 Labs: Abnormal Lab Results - Last 24 Hours (Table) 05/18/25 05/18/25 05/19/25 Range/Units 16:44 20:34 06:02 POC Glucose (mg/dL) 122 H 149 H 141 H (70-110) mg/dL 05/19/25 Range/Units 11:33 POC Glucose (mg/dL) 140 H (70-110) mg/dL Assessment and Plan Assessment: Symptomatic right knee osteoarthritis, status post right total knee arthroplasty Postoperative acute hypoxic respiratory failure secondary to atelectasis, expected outcome Chronic pancytopenia, follows with Dr. Stephens Diabetes mellitus, hemoglobin A1c 5.3 Hypertension Hyperlipidemia Gastroesophageal reflux disease Anxiety Obesity, BMI 33 Plan: Continue on current medication regime ,monitoring and symptomatic treatment. Adjusted pain management and DVT prophylaxis as per primary. Discharge planning in progress for later today if pain better controlled as per orthopedic surgery. Maintain aggressive pulmonary toileting, incentive spirometer reinforced. PT. follow-up with PCP in 1 week. The impression and plan of care has been dictated as directed. : I performed a history and examination of this patient, discussed the same with the dictator. I agree with the dictator's note ,documented as a scribe. Any additional findings or plans will be noted.
[2025-05-19 14:43] VITALS: BP 107/68; PULSE 68; TEMP 98
[2025-05-19 16:44] LABS: Glucose,Whole Blood 127 mg/dL (70-110)
== END 2025-05-19 18:19 | disposition home health service (06) ==
LOC: OR 07:59 → 4SSUR 15:34 → OR 05-19 18:19
PROVIDERS: ATTEND Orthopaedic Surgery
DX: M17.11 Unilateral primary osteoarthritis, right knee (principal); E11.9 Type 2 diabetes mellitus without complications; E66.9 Obesity, unspecified; E78.5 Hyperlipidemia, unspecified; F41.9 Anxiety disorder, unspecified; I10 Essential (primary) hypertension; K21.9 Gastro-esophageal reflux disease without esophagitis; D61.818 Other pancytopenia; Z68.33 Body mass index [BMI] 33.0-33.9, adult; Z79.4 Long term (current) use of insulin; Z79.82 Long term (current) use of aspirin; Z79.84 Long term (current) use of oral hypoglycemic drugs; Z79.899 Other long term (current) drug therapy; Z88.0 Allergy status to penicillin; Z88.1 Allergy status to other antibiotic agents; Z88.8 Allergy status to other drugs, medicaments and biological substances; Z90.710 Acquired absence of both cervix and uterus
CPT/HCPCS: 97161; 86900; 86901; 85025; 86850; 73560; 27447; C1776; C1713 ×2; P9073; J1100; J0690 ×3; J2405; J3010; J1171 ×2; 83036